=== PATIENT | female | born 1985 | race Caucasian/White ===

== ENCOUNTER 2021-07-04 13:39 | Emergency (ER) | payer MEDICARE, MEDICAID, SELFPAY ==
--- NOTE | ~2021-07-04 | CT_ITS ---
EXAMINATION: CT ABDOMEN AND PELVIS WITH CONTRAST CLINICAL INFORMATION: Abdominal pain. SBO? COlitis? Appendicitis? COMPARISON: CT abdomen pelvis 04/12/2009 TECHNIQUE: Multidetector volumetric images were obtained from the superior aspect of the liver through the pubic symphysis following administration 85 mL of Omnipaque 350 intravenous contrast. Sagittal and coronal reformatted images were obtained on the technologist's workstation. Oral contrast: No This CT examination was performed using dose optimization techniques as appropriate, variously including the following: *Automated exposure control *Adjustment of mA and/or kV according to patient size (this includes techniques or standardized protocols for targeted exams where dose is matched to indication/reason for exam; i.e. extremities or head) *Use of iterative reconstruction technique DLP: 1755 mGy-cm FINDINGS: LUNG BASES: The visualized lung bases are unremarkable. LIVER, GALLBLADDER, AND BILIARY TREE: The liver is normal in size, shape, and attenuation. No focal hepatic lesion or biliary ductal dilatation is present. Status post cholecystectomy. PANCREAS: Unremarkable. SPLEEN: There is mild splenomegaly with the spleen measuring 13.3 cm in greatest transverse dimension. ADRENAL GLANDS: Unremarkable. KIDNEYS AND URETERS: The kidneys are normal in size, shape, and attenuation. No hydronephrosis, hydroureter, or calculi seen. No perinephric stranding. BLADDER: Unremarkable. GASTROINTESTINAL TRACT: The small and large bowel are unremarkable. The appendix is unremarkable. ABDOMINAL WALL: There is a spiculated soft tissue density seen in the left upper quadrant abdominal wall measuring 6.6 x 2.2 x 1.9 cm. This was not present in 2010. LYMPH NODES: Normal. VASCULAR: Unremarkable. PELVIC VISCERA: The patient appears to be status post hysterectomy. Left ovary is enlarged and contains a 4.7 x 3.6 x 3 cm cyst. In 2010, a 3.0 x 2.4 cm cyst was present in the left ovary. OSSEOUS STRUCTURES: Unremarkable. CT/CT abdomen pelvis w con IMPRESSION: 1. Mild splenomegaly, status post cholecystectomy. 2. Spiculated mass left upper quadrant subcutaneous fat most likely secondary to prior surgery or old trauma. 3. Left ovarian cyst. This would be better evaluated with endovaginal and transabdominal ultrasound. Fleischner guidelines were followed. This result was discussed with LYLA Carmichael at 8:45 PM on the day of the exam and it was ascertained that the content of the report was understood at the time of direct communication.
[2021-07-04 13:54] VITALS: BP 102/52; PULSE 66; RESP 18; TEMP 36.1; O2SAT 95; BMI 53.2
[2021-07-04 14:29] LABS: MANUAL DIFF FLAG NO
[2021-07-04 14:32] LABS: Basophils Percent Auto 0.3 % (0-2); Eosinophils Percent Auto 0.5 % (0-4); Hematocrit 40.3 % (37.0-47.0); Hemoglobin 12.9 g/dl (12.0-16.0); Imm Gran Abs Auto 0.01 X10*3/uL (0.00-0.03); Imm Gran Pct Auto 0.2 % (0.0-0.4); Lymphocytes Absolute Auto 1.4 X10*3/uL (1.2-4.9); Lymphocytes Percent Auto 22.8 % (20-40); Mean Corpuscular Hemoglobin 30.5 pg (27.0-33.0); Mean Corpuscular Volume 95.3 fL (80.0-98.0); Mean Platelet Volume 9.5 fL (9.4-12.3); Monocytes Absolute Auto 0.4 X10*3/uL (0.1-1.2); Monocytes Percent Auto 5.9 % (2-11); Neutrophils Absolute Auto 4.3 x10*3/uL (2.0-8.3); Neutrophils Percent Auto 70.3 % (45-73); Platelet Count 206 X10*3/uL (160-400); Red Blood Count 4.23 X10*6/uL (4.20-5.50); Red Cell Distribution Width 13.4 % (11.0-16.0); White Blood Count 6.1 X10*3/uL (4.8-10.8)
[2021-07-04 14:37] LABS: Appearance Urine CLEAR; Color Urine YELLOW; Glucose Urine UA NEG (NEG); Leukocyte Esterase Urine TRACE (NEG); Nitrite Urine NEG (NEG); Specific Gravity - Urine <= 1.005 (1.005-1.025); UACC Culture Trigger YES; Urine Blood NEG (NEG); Urine Ketones NEG (NEG); Urine Protein NEG (NEG-TRACE)
[2021-07-04 14:39] LABS: UPreg QC Valid YES; Urine Pregnancy NEGATIVE (NEGATIVE)
[2021-07-04 14:47] LABS: RBC Urine 0-2 /HPF (0); Squamous Epithelial Cell Urine 1+ /LPF
[2021-07-04 14:50] LABS: Anion Gap 11 (12-20); Blood Urea Nitrogen 7 mg/dL (9-16); Calcium 8.8 mg/dL (8.4-10.2); Carbon Dioxide 21 mmol/L (22-29); Chloride 107 mmol/L (96-108); Creatinine Clr Calc Pharmacy 127.7; Estimated Glomerular Filt Rate > 60; Glucose Random 82 mg/dL (60-115); Sodium 135 mmol/L (135-145)
--- NOTE | 2021-07-04 18:56 | ED_ITS ---
HPI - Abdominal Pain General Chief Complaint: Abdominal Pain Stated Complaint: bowel issues Time Seen by Provider: 07/04/21 18:11 Source: patient Mode of arrival: ambulatory Limitations: no limitations History of Present Illness HPI narrative: Probably 36-year-old female history of bowel issues such as constipation presents to ED for constipation for the past 4 days. Patient was sent by her chiropractor and osteopathic medicine provider to rule out obstruction. Patient states only small drops of feces and feels like feces a stuck inside her. Patient states some nausea but no vomiting. Patient states no fever or chills. Related Data Previous Rx's Medication Instructions Recorded lactulose 10 gram/15 mL oral 20 g (30 mL) PO DAILY 3 Days #90 ml 07/04/21 solution Allergies Allergy/AdvReac Type Severity Reaction Status Date / Time clarithromycin [From Biaxin] Allergy Unknown UNKNOWN Unverified 12/16/19 17:50 acetaminophen [From Percocet] Allergy Headache Verified 07/04/21 14:00 haloperidol [From Haldol] Allergy Unknown Verified 07/04/21 14:00 ketamine Allergy Unknown Verified 07/04/21 14:00 metoclopramide [From Reglan] Allergy Irritable Verified 07/04/21 14:00 oxycodone [From Percocet] Allergy Headache Verified 07/04/21 14:00 sumatriptan [From Imitrex] Allergy Nausea Verified 07/04/21 14:00 From Compazine Allergy Unknown UNKNOWN Uncoded 12/16/19 17:50 Review of Systems Review of Systems Constipation Yes all other systems are reviewed and are negative [facility] Past Medical History Medical History (Updated 07/04/21 @ 22:32 by LYLA Carmichael) Anxiety Constipation Migraine PTSD (post-traumatic stress disorder) Social History Social History Advance Directives: No Advance Directives Information Provided: No Patient : No Physical Exam ED Vital Signs: Vital Signs - 24 hr 07/04/21 13:54 07/04/21 19:57 Temperature 97.0 F 97.4 F Pulse Rate 66 60 Respiratory Rate 18 16 Blood Pressure 102/52 L 122/59 L Pulse Oximetry 95 98 BMI result Body Mass Index 53.2 Const General: cooperative, healthy appearing, comfortable, no acute distress, well developed, alert, awake and Physically active Orientation/consciousness: patient oriented x3 HENMT Head: Yes normal to inspection, Yes No palpable skull fracture present, Yes normocephalic, Yes atraumatic and No abrasion Eyes General: appearance normal, both eyes and all related structures Neck Neck: Yes normal visual inspection, Yes full ROM, Yes no lymphadenopathy, Yes no meningeal signs, Yes trachea midline, Yes supple, No anterior neck swelling and No tender Chest Chest palpation & inspection: normal inspection of the chest and normal palpation of entire chest wall Resp Effort & Inspection: normal respiratory effort and able to speak in complete sentences Auscultation: clear to auscultation bilaterally Cardio Jugular venous distension: no JVD Heart sounds: S1 normal heart sound present and S2 normal heart sound present GI Inspection: Yes normal to inspection and No abdominal wall ecchymosis Palpation (GI): Soft to palpation, not firm, Tenderness to palpation present (GI) in the LLQ (mild) and in the RLQ (mild); Negative for not at McBurney's point, not periumbilically, not suprapubicly, Ramos's sign negative, obturator sign negative, psoas sign negative, with no rebound tenderness and Rovsing's sign negative, no guarding, not rigid and no pulsatile masses General: No CVA tenderness and Yes no CVA tenderness Back/Spine/Pelvis Back: no CVA tenderness, No CVA tenderness and No back tenderness Skin General skin exam: no rashes or lesions noted and elasticity normal Neuro General: patient oriented x3, gait normal and no meningeal signs Cranial nerves: Yes CN's II-XII intact bilaterally Extrem General: Yes normal to inspection and Yes full ROM Psych Appearance: grossly normal, well kempt and not disheveled Course Course Course Narrative: Patient labs ordered Reevaluation(s) Reevaluation #1: Patient labs are normal. Was sent for CT scan to rule out bowel obstruction. Time: 19:08 Reevaluation #2: Patient labs are normal. CT scan negative for any abdominal emergency. CT scan reading showed subcutaneous mass and left upper quadrant as per radiologist and can be due to surgery. I spoke with patient who states that she did have surgery in that area in the past. Diagnosis constipation. Patient requesting Benadryl and fluids for her migraine exacerbation. Patient states history of migraines. Patient given magnesium citrate and lactulose. Not suspecting ovar surya torsion. Urine negative for UTI. Time: 22:30 MDM - Abdominal Pain MDM Narrative Medical decision making narrative: Constipation Lab Data Result diagrams: 07/04/21 14:15 07/04/21 14:15 Labs: Lab Results 07/04/21 07/04/21 07/04/21 Range/Units 14:15 14:15 14:24 WBC 6.1 (4.8-10.8) X10*3/uL RBC 4.23 (4.20-5.50) X10*6/uL Hgb 12.9 (12.0-16.0) g/dl Hct 40.3 (37.0-47.0) % MCV 95.3 (80.0-98.0) fL MCH 30.5 (27.0-33.0) pg MCHC 32.0 (31.0-35.0) g/dl RDW 13.4 (11.0-16.0) % Plt Count 206 (160-400) X10*3/uL MPV 9.5 (9.4-12.3) fL Immature Gran % (Auto) 0.2 (0.0-0.4) % Neut % (Auto) 70.3 (45-73) % Lymph % (Auto) 22.8 (20-40) % [place] % (Auto) 5.9 (2-11) % Eos % (Auto) 0.5 (0-4) % Baso % (Auto) 0.3 (0-2) % Lymph # (Auto) 1.4 (1.2-4.9) X10*3/uL [place] # (Auto) 0.4 (0.1-1.2) X10*3/uL Eos # (Auto) 0.0 (0.0-0.4) X10*3/uL Baso # (Auto) 0.0 (0.0-0.2) X10*3/uL Abs Immat Gran (auto) 0.01 (0.00-0.03) X10*3/uL Absolute Neuts (auto) 4.3 (2.0-8.3) x10*3/uL Absolute Nucleated RBC 0.000 (0.0-0.012) X10*3/uL Nucleated RBC % (auto) 0.0 (0.0-0.2) /100WBC Sodium 135 (135-145) mmol/L Potassium 4.0 (3.3-5.1) mmol/L Chloride 107 (96-108) mmol/L Carbon Dioxide 21 L (22-29) mmol/L Anion Gap 11 L (12-20) BUN 7 L (9-16) mg/dL Creatinine 0.90 (0.5-1.4) mg/dL Estim Creat Clear Calc 127.7 Estimated GFR > 60 Random Glucose 82 (60-115) mg/dL Calcium 8.8 (8.4-10.2) mg/dL Urine Color YELLOW Urine Appearance CLEAR Urine pH 6.0 (5.0-8.0) Ur Specific [place] <= 1.005 (1.005-1.025) Urine Protein NEG (NEG-TRACE) MG/DL Urine Glucose (UA) NEG (NEG) MG/DL Urine Ketones NEG (NEG) MG/DL Urine Blood NEG (NEG) Urine Nitrite NEG (NEG) Ur Leukocyte Esterase TRACE H (NEG) Urine RBC 0-2 (0) /HPF Urine WBC 1-4 (0-4) /HPF Ur Squamous Epith Cells 1+ /LPF Urine Bacteria NONE /LPF Urine Test (NEGATIVE) 07/04/21 Range/Units 14:24 WBC (4.8-10.8) X10*3/uL RBC (4.20-5.50) X10*6/uL Hgb (12.0-16.0) g/dl Hct (37.0-47.0) % MCV (80.0-98.0) fL MCH (27.0-33.0) pg MCHC (31.0-35.0) g/dl RDW (11.0-16.0) % Plt Count (160-400) X10*3/uL MPV (9.4-12.3) fL Immature Gran % (Auto) (0.0-0.4) % Neut % (Auto) (45-73) % Lymph % (Auto) (20-40) % [place] % (Auto) (2-11) % Eos % (Auto) (0-4) % Baso % (Auto) (0-2) % Lymph # (Auto) (1.2-4.9) X10*3/uL [place] # (Auto) (0.1-1.2) X10*3/uL Eos # (Auto) (0.0-0.4) X10*3/uL Baso # (Auto) (0.0-0.2) X10*3/uL Abs Immat Gran (auto) (0.00-0.03) X10*3/uL Absolute Neuts (auto) (2.0-8.3) x10*3/uL Absolute Nucleated RBC (0.0-0.012) X10*3/uL Nucleated RBC % (auto) (0.0-0.2) /100WBC Sodium (135-145) mmol/L Potassium (3.3-5.1) mmol/L Chloride (96-108) mmol/L Carbon Dioxide (22-29) mmol/L Anion Gap (12-20) BUN (9-16) mg/dL Creatinine (0.5-1.4) mg/dL Estim Creat Clear Calc Estimated GFR Random Glucose (60-115) mg/dL Calcium (8.4-10.2) mg/dL Urine Color Urine Appearance Urine pH (5.0-8.0) Ur Specific [place] (1.005-1.025) Urine Protein (NEG-TRACE) MG/DL Urine Glucose (UA) (NEG) MG/DL Urine Ketones (NEG) MG/DL Urine Blood (NEG) Urine Nitrite (NEG) Ur Leukocyte Esterase (NEG) Urine RBC (0) /HPF Urine WBC (0-4) /HPF Ur Squamous Epith Cells /LPF Urine Bacteria /LPF Urine Test NEGATIVE (NEGATIVE) Discharge Plan Discharge Clinical Impression: Constipation Patient Disposition: Home, Self-Care Instructions: Constipation (ED) Additional Instructions: Her labs came back normal. CT scan came back negative for any abdominal emergent medical/surgical etiology. Will be discharged with lactulose prescription for constipation. Return to the ED for worsening abdominal pain, nausea, vomiting, dysuria, hematuria, flank pain, fever, chills, chest pain, shortness of breath, headache or any other concerning symptoms. 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 Prescriptions: New lactulose 10 gram/15 mL solution 20 g PO DAILY 3 Days Qty: 90 0RF Stand Alone Forms: Work/School Release Interventions: ED Discharge Assessment Last Done: 07/04/21 22:53 Discharge Date/Time: 07/04/21 22:57 Print Language: Kazakh
[2021-07-04] MEDS: ondansetron HCL 4 MG/2 ML VIAL IVPUSH ×2 (19:55→21:33)
[2021-07-04 19:57] VITALS: BP 122/59; PULSE 60; RESP 16; TEMP 36.3; O2SAT 98
--- NOTE | 2021-07-04 20:04 | PC.NURSE ---
PT CONTINUING TO TELL NURSE THAT THE DR PROMISED HER PAIN MEDICATION NAUSEA MEDICATION ORDER AND PT WAS TOLD SHE NEED TO WAIT TILL CT SCAN WAS PERFORM AND DR WILL SPEAK TO JENNIFER
[2021-07-04] MEDS: iohexoL 350 MG/ML 100 ML INFUS..BTL IV (20:10)
[2021-07-04] MEDS: Ketorolac Tromethamine 30 MG/ML VIAL IVPUSH (21:29)
[2021-07-04] MEDS: diphenhydrAMINE HCL 50 MG/ML VIAL 25 MG IVPUSH (21:30)
[2021-07-04] MEDS: 0.9 % Sodium Chloride 1,000 ML 999 ML IV (21:35)
[2021-07-04] MEDS: Magnesium Citrate 300 ML SOLUTION PO (22:45)
== END 2021-07-04 22:57 | disposition home or self-care (01) ==
PROVIDERS: Emergency Provider Internal Medicine; PCP Internal Medicine Sports Medicine
DX: K59.00 Constipation, unspecified (principal); Z79.899 Other long term (current) drug therapy
CPT/HCPCS: 36415; 74177; 80048; 81001; 81025; 85025; 87086; 87147; 96361; 96374; 96375; 96376; 99284; J1200; J1885; J2405; Q9967

== ENCOUNTER 2022-02-04 10:14 | Emergency (ER) | payer MEDICARE, MEDICAID, SELFPAY ==
[2022-02-04 10:21] VITALS: BP 110/70; PULSE 61; RESP 20; TEMP 36.7; O2SAT 98; BMI 51.7
--- NOTE | 2022-02-04 11:29 | ED_ITS ---
HPI - Headache General Chief Complaint: Headache Stated Complaint: MIGRAINE Time Seen by Provider: 02/04/22 11:00 Source: patient Mode of arrival: ambulatory Limitations: no limitations History of Present Illness HPI Narrative: Patient is a 36-year-old female with a past medical history of migraines who presents emergency department today for evaluation of right-sided migraine with onset of symptoms 2 days ago. She is typically followed by [facility] for management of her migraine headaches. She states that she has multiple medications that she takes at home for preventative including Zonegran, Topamax, propranolol, and she also has abortive medications which include Relpax, Phenergan, Flexeril, and Benadryl. She has been compliant with her preventative medications. She states that she took the abortive medications yesterday without any improvement in her headache. She called the [facility] infusion center today to try and schedule an appointment but she was unable to be scheduled until Friday. She was advised to come to the emergency department. [facility] neurology had faxed over her typical headache care plan. She states that this migraine does feel consistent with her typical headaches, has associated photophobia and phonophobia. Denies any red flag symptoms. Denies any recent head injury or trauma. Related Data Previous Rx's Medication Instructions Recorded lactulose 10 gram/15 mL oral 20 g (30 mL) PO DAILY 3 days #90 mL 07/04/21 solution Allergies Allergy/AdvReac Type Severity Reaction Status Date / Time clarithromycin [From Biaxin] Allergy Unknown UNKNOWN Unverified 12/16/19 17:50 acetaminophen [From Percocet] Allergy Headache Verified 07/04/21 14:00 haloperidol [From Haldol] Allergy Unknown Verified 07/04/21 14:00 ketamine Allergy Unknown Verified 07/04/21 14:00 metoclopramide [From Reglan] Allergy Irritable Verified 07/04/21 14:00 oxycodone [From Percocet] Allergy Headache Verified 07/04/21 14:00 sumatriptan [From Imitrex] Allergy Nausea Verified 07/04/21 14:00 From Compazine Allergy Unknown UNKNOWN Uncoded 12/16/19 17:50 Review of Systems Review of Systems: Constitutional : No Fever, No Chills, No Fatigue ENT/Mouth : No sore throat, No Rhinorrhea Eyes: No Eye Pain, No Swelling, No Redness Cardiovascular : No Chest Pain, No SOB, No Dyspnea on Exertion Respiratory : No Cough, No Sputum Gastrointestinal : No Nausea, No Vomiting, No Diarrhea, No abdominal Pain Genitourinary : No Dysuria, No Urinary Frequency, No Hematuria, Musculoskeletal : No joint pain, No Myalgias, No Joint Swelling Skin : No Skin Lesions, No rash Neuro : No Weakness, No Numbness, No Dizziness, positive Headache Psych : No Anxiety/Panic, No Depression Heme/Lymph: No Bruising, No Bleeding,No Lymphadenopathy Endocrine : No Polyuria, No Polydipsia Yes all other systems are reviewed and are negative COUNT INCLUDES THE [facility] Past Medical History Attestation statement: The following information was validated with the patient. Source: old records reviewed Medical History Anxiety Constipation Migraine PTSD (post-traumatic stress disorder) Social History Social History Advance Directives: No Advance Directives Information Provided: No Physical Exam Vital Signs: Vital Signs: Last Vital Signs Temp 98.7 F 02/04/22 14:39 Pulse 98 02/04/22 14:39 Resp 18 02/04/22 14:39 BP 122/80 02/04/22 14:39 Pulse Ox 100 02/04/22 14:39 O2 Del Method 02/04/22 14:39 BMI result Body Mass Index 51.7 Appearance: Alert.?Oriented to person, place and time. No acute distress.?Normal affect. Head: Normocephalic, atraumatic Eyes: Pupils equal, round and reactive to light. EOMI. No nystagmus. No tenderness to palpation over the temporal region. ENT: External auditory canal normal tympanic membrane pearly may and intact bilaterally. Oropharynx normal. Neck: Normal inspection.? Neck supple. CVS: Heart sounds normal. Normal heart rate and rhythm.? Pulses normal.?? Respiratory: No respiratory distress.? Lung sounds clear to auscultation bilaterally?? Abdomen: Soft and non-tender. Normoactive bowel sounds. ?? Skin: Skin warm and dry.? Normal skin color.? ?? Extremities: No lower extremity edema.? Neuro: Moves all extremities spontaneously. Sensation intact bilaterally. CN II- XII intact. No focal neuro deficits. Ambulatory with steady gait. Course Course Course Narrative: Patient is a 36-year-old female with a past medical history of migraines. Presenting today for abortive therapy of migraine that she has been experiencing over the past 2 days. No red flag symptoms. At this time low suspicion for ICH/SAH, would defer CT of the head. Patient Feels this is consistent with chronic migraines. Was unable to be seen at [facility] to follow care plan from Neurology. Received fax from her neurologist which includes care plan for management; diazepam 1 mg IV, 1500 mL IV saline, diphenhydramine 20 mg IV, 2 doses 30 minutes apart, Toradol 15 mg IV, Zofran 4 mg IV, 2 doses 30 minutes apart. Given diazepam and lorazepam shortage, will replace diazepam with Versed 1 mg IV. Disposition pending results. Reevaluation(s) Reevaluation #1: Migraine headache has significantly improved after receiving her care plan and medication regimen. At this time she states that she feels comfortable going home. Will follow up outpatient with her neurologist as well as primary care provider. We reviewed worrisome signs and symptoms that she should return back to the emergency department for. All questions were answered, and patient was discharged home in a stable condition. Time: 14:37 Medications Administered Discontinued Medications Generic Name Dose Route Start Last Admin Trade Name Iris PRN Reason Stop Dose Admin Diphenhydramine HCl 25 mg 02/04/22 11:19 02/04/22 12:47 Diphenhydramine Hcl 50 Mg/Ml Vial IVPUSH 02/04/22 11:20 25 mg ONCE ONE Administration Diphenhydramine HCl 25 mg 02/04/22 13:19 02/04/22 13:29 Diphenhydramine Hcl 50 Mg/Ml Vial IVPUSH 02/04/22 13:20 25 mg ONCE ONE Administration Sodium Chloride 1,500 mls @ 999 mls/hr 02/04/22 11:30 02/04/22 14:24 Ns IV 02/04/22 13:00 Infused .[id number] [facility] Infusion Ketorolac Tromethamine 15 mg 02/04/22 11:19 02/04/22 13:33 Ketorolac Tromethamine 15 Mg/Ml Vial IVPUSH 02/04/22 11:20 15 mg ONCE ONE Administration Midazolam HCl 1 mg 02/04/22 11:19 02/04/22 13:35 Midazolam Hcl/Pf 2 Mg/2 Ml Vial IVPUSH 02/04/22 11:20 1 mg ONCE ONE Administration Ondansetron HCl 4 mg 02/04/22 11:19 02/04/22 12:41 Ondansetron Hcl 4 Mg/2 Ml Vial IVPUSH 02/04/22 11:20 4 mg ONCE ONE Administration Ondansetron HCl 4 mg 02/04/22 13:19 02/04/22 13:29 Ondansetron Hcl 4 Mg/2 Ml Vial IVPUSH 02/04/22 13:20 4 mg ONCE ONE Administration MDM - Headache Medical Records Attestation: I reviewed the patient's medical records. Discharge Plan Discharge Clinical Impression: Migraine Patient Disposition: Home, Self-Care Instructions: Migraine Headache (ED) Additional Instructions: Continue taking all of your medications as currently prescribed most importantly your prophylactic migraine medications as well as her abortive migraine medications. Follow-up with your neurologist as well as your primary care provider Please feel free to return to emergency department any new or worsening symptoms or concerns. Prescriptions: No Action lactulose 10 gram/15 mL solution 20 g PO DAILY 3 Days Qty: 90 0RF Referrals: Bret Gerard MD [Primary Care Provider] - Interventions: ED Discharge Assessment Last Done: 02/04/22 15:17 Discharge Date/Time: 02/04/22 15:18
[2022-02-04] MEDS: ondansetron HCL 4 MG/2 ML VIAL IVPUSH ×2 (12:41→13:29)
[2022-02-04] MEDS: 0.9 % Sodium Chloride 1,500 ML 999 ML IV (12:45)
[2022-02-04] MEDS: diphenhydrAMINE HCL 50 MG/ML VIAL 25 MG IVPUSH ×2 (12:47→13:29)
--- NOTE | 2022-02-04 13:25 | PC.NURSE ---
PT HAS A VERY SPECIFIC CARE PLAN AND MEDICATION REGIME. SHE HAS CONCERNS THAT HER IV ACCESS MAY NOT LAST FOR HER 1500ML IV INFUSION. SHE WAS MEDICATED CHARTED AN HER IV SITE APPEARS BENIGN AT THIS TIME
[2022-02-04] MEDS: Ketorolac Tromethamine 15 MG/ML VIAL IVPUSH (13:33)
[2022-02-04] MEDS: Midazolam HCl/PF 2 MG/2 ML VIAL 1 MG IVPUSH (13:35)
[2022-02-04 14:10] VITALS: BP 123/51; PULSE 54; RESP 16; TEMP 36.8; O2SAT 98
[2022-02-04 14:39] VITALS: BP 122/80; PULSE 98; RESP 18; TEMP 37.1; O2SAT 100
== END 2022-02-04 15:18 | disposition home or self-care (01) ==
PROVIDERS: Emergency Provider Emergency Medicine; PCP Internal Medicine Sports Medicine
DX: G43.909 Migraine, unspecified, not intractable, without status migrainosus (principal); Z79.899 Other long term (current) drug therapy
CPT/HCPCS: 96361; 96374; 96375; 96376; 99284; J1200; J1885; J2250; J2405

== ENCOUNTER 2022-02-13 10:39 | Emergency (ER) | payer MEDICARE, MEDICAID, SELFPAY ==
[2022-02-13 10:59] VITALS: BP 110/32; PULSE 69; RESP 18; TEMP 36.4; O2SAT 97; BMI 52.4
[2022-02-13 13:12] LABS: Appearance Urine Clear; Color Urine Dark Yellow; Glucose Urine UA Negative (Negative); Leukocyte Esterase Urine Trace (Negative); Nitrite Urine Positive (Negative); Specific Gravity - Urine 1.025 (1.005-1.025); UMIC TRIGGER UACC YES; Urine Blood Negative (Negative); Urine Ketones Trace mg/dL (Negative); Urine Protein Negative (Neg-Trace)
[2022-02-13 13:22] LABS: Hyaline Casts Urine 0-2 /LPF (0-2); RBC Urine 0-2 /HPF (0-2); UACC Culture Trigger YES; WBC Urine 0-5 /HPF (0-5)
[2022-02-13 13:23] LABS: Bacteria Urine Trace (None Seen)
--- NOTE | 2022-02-13 13:48 | ED.HA ---
HPI - Headache General Chief Complaint: Headache Stated Complaint: muti flu like symptoms Time Seen by Provider: 02/13/22 12:52 Source: patient Mode of arrival: ambulatory Limitations: no limitations History of Present Illness HPI Narrative: 36-year-old female who presents emergency department for evaluation of migraine headache. Patient states she had a migraine headache approximately 2 weeks prior was seen in the emergency department and was treated with medications with improvement of her pain. She states the pain had resolved for approximately 4-5 days then she started to get small headaches on and off. She states that 4 days prior to coming to the emergency department she developed a headache which was consistent with her usual migraine. She has points to her left yazdanism area when asked to localize the pain. She describes the pain is a pulsating pain associated with nausea and vomiting. The pain is 8/10. She also states that she has a pressure-like sensation in the frontal area of her head which she states is similar to her sinus pain that she has also had in the past. The patient states that she usually has a transfusion protocol that can be done at [facility] but she felt too ill and came to the emergency department for treatment. She states the protocol is Zofran 4 mg IV, Benadryl 25 mg IV, Ativan 1-2 mg IV and Toradol 15 mg IV. She then gets a repeat dose of Zofran 4 mg IV and Benadryl 25 mg IV. She is also treated with normal saline x1 L. elicited complaint: migraine Onset (ago): day(s) (4) Onset description: gradually Location: left and temporal Severity: severe Pain scale (0-10): 8 Quality & Timing: pulsatile Exacerbating factors: none Relieving factors: nothing Associated symptoms: nausea and vomiting Related Data Previous Rx's Medication Instructions Recorded lactulose 10 gram/15 mL oral 20 g (30 mL) PO DAILY 3 days #90 mL 07/04/21 solution Allergies Allergy/AdvReac Type Severity Reaction Status Date / Time clarithromycin [From Biaxin] Allergy Unknown UNKNOWN Unverified 12/16/19 17:50 acetaminophen [From Percocet] Allergy Headache Verified 07/04/21 14:00 haloperidol [From Haldol] Allergy Unknown Verified 07/04/21 14:00 ketamine Allergy Unknown Verified 07/04/21 14:00 metoclopramide [From Reglan] Allergy Irritable Verified 07/04/21 14:00 oxycodone [From Percocet] Allergy Headache Verified 07/04/21 14:00 sumatriptan [From Imitrex] Allergy Nausea Verified 07/04/21 14:00 From Compazine Allergy Unknown UNKNOWN Uncoded 12/16/19 17:50 Review of Systems Review of Systems: Yes all other systems are reviewed and are negative [facility] Past Medical History [facility] Narrative: Social history: She denies tobacco, alcohol and drug use. Medical History Anxiety Constipation Migraine PTSD (post-traumatic stress disorder) Social History Social History Advance Directives: No Advance Directives Information Provided: No Physical Exam Vital Signs: Vital Signs: Last Vital Signs Temp 97.8 F 02/13/22 16:40 Pulse 57 02/13/22 16:40 Resp 16 02/13/22 16:40 BP 103/56 L 02/13/22 16:40 Pulse Ox 98 02/13/22 16:40 O2 Del Method 02/13/22 16:40 BMI result Body Mass Index 52.4 Const: Other: Awake, alert, female patient, pleasant, cooperative, no distress, answers all questions appropriately HEENT: Other: [id number] tenderness palpation over the frontal sinuses bilaterally with moderate tenderness palpation of the left yazdanism area Head: Yes normal to inspection, Yes normocephalic and Yes atraumatic Ears: external ears normal General nose exam: Normal external nose present Face and sinus: Yes normal facial exam Mouth: Normal oral and palatal mucosa present Throat: Yes posterior oropharynx normal Eyes: General: appearance normal, both eyes and all related structures Pupils: Equal, round and reactive pupils present Neck: Neck: Yes normal visual inspection, Yes no lymphadenopathy, Yes trachea midline and Yes supple Chest: Chest palpation & inspection: normal inspection of the chest and normal palpation of entire chest wall Resp: Effort & Inspection: normal respiratory effort and able to speak in complete sentences Auscultation: clear to auscultation bilaterally Cardio: Rate: regular rate Rhythm: regular rhythm Heart sounds: S1 normal heart sound present, S2 normal heart sound present and no murmurs GI: Inspection: Yes normal to inspection Palpation (GI): Soft to palpation, nontender and no guarding Auscultation: normal bowel sounds : General: Yes no CVA tenderness Back/Spine/Pelvis: Back: no CVA tenderness Skin: General skin exam: no rashes or lesions noted Neuro: Cranial nerves: Yes CN's II-XII intact bilaterally and Yes Equal, round and reactive pupils present Cognition (Neuro): normal cognition Motor exam (neuro): 5/5 motor strength present throughout Extrem: General: Yes normal to inspection Psych: Appearance: grossly normal Speech and movement: Normal speech and movement present Affect: normal affect Attitude: cooperative Thought process: Normal thought process present Thought content: Normal thought content present Course Course Course Narrative: 36-year-old female who presents emergency department for evaluation of migraine-like headache x4 days. Patient has a long history of migraine headaches she states that this headache feels similar to previous headaches. Patient states that she has a transfusion protocol at [facility] however she was unable to go to [facility] secondary to feeling too ill therefore she came to the emergency department. Patient's vital signs were normal. Physical examination did reveal some left temporal tenderness as well as frontal sinus tenderness. Patient's neurologic exam was otherwise unremarkable. Patient's presentation is consistent with a migraine syndrome. She was ordered to get her protocol medications: Toradol 15 mg IV, Zofran 4 mg IV, Benadryl 25 mg IV and Versed 2 mg IV. She will get a repeat dose of Benadryl 25 mg IV and Zofran 4 mg IV and 30 minutes. She was also ordered to get normal saline x1 L. 1709: The patient required a 3rd dose of Zofran 4 mg IV. She states that her nausea improved but her headache only improved slightly. She was given Dilaudid 0.5 mg IV and Versed 2 mg IV. The patient will be discharged home. She was advised to follow-up with her providers for further treatment of her migraine syndrome. Medications Administered Discontinued Medications Generic Name Dose Route Start Last Admin Trade Name Claudeq PRN Reason Stop Dose Admin Diphenhydramine HCl 25 mg 02/13/22 13:45 02/13/22 14:02 Diphenhydramine Hcl 50 Mg/Ml Vial IVPUSH 02/13/22 13:46 25 mg ONCE STA Administration Diphenhydramine HCl 25 mg 02/13/22 13:46 02/13/22 14:40 Diphenhydramine Hcl 50 Mg/Ml Vial IVPUSH 02/13/22 13:47 25 mg ONCE STA Administration Sodium Chloride 1,000 mls @ 999 mls/hr 02/13/22 13:45 02/13/22 15:20 Ns IV 02/13/22 14:45 Infused .Q1H1M STA Infusion Ketorolac Tromethamine 15 mg 02/13/22 13:45 02/13/22 14:02 Ketorolac Tromethamine 15 Mg/Ml Vial IVPUSH 02/13/22 13:46 15 mg ONCE STA Administration Midazolam HCl 2 mg 02/13/22 13:45 02/13/22 14:03 Midazolam Hcl/Pf 2 Mg/2 Ml Vial IVPUSH 02/13/22 13:46 2 mg ONCE STA Administration Ondansetron HCl 4 mg 02/13/22 13:46 02/13/22 14:00 Ondansetron Hcl 4 Mg/2 Ml Vial IVPUSH 02/13/22 13:47 4 mg ONCE ONE Administration Ondansetron HCl 4 mg 02/13/22 14:37 02/13/22 14:41 Ondansetron Hcl 4 Mg/2 Ml Vial IVPUSH 02/13/22 14:38 4 mg ONCE ONE Administration Ondansetron HCl 4 mg 02/13/22 15:25 02/13/22 15:36 Ondansetron Hcl 4 Mg/2 Ml Vial IVPUSH 02/13/22 15:26 4 mg ONCE ONE Administration MDM - Headache Lab Data Labs: Lab Results 02/13/22 Range/Units 12:51 Urine Color Dark Yellow Urine Appearance Clear Urine pH 7.0 (5.0-9.0) Ur Specific [place] 1.025 (1.005-1.025) Urine Protein Negative (Neg-Trace) mg/dL Urine Glucose (UA) Negative (Negative) mg/dL Urine Ketones Trace (Negative) mg/dL Urine Blood Negative (Negative) Urine Nitrite Positive H (Negative) Ur Leukocyte Esterase Trace H (Negative) Urine RBC 0-2 (0-2) /HPF Urine WBC 0-5 (0-5) /HPF Ur Squamous Epith Cells 6-10 (0-2) /HPF Urine Bacteria Trace (None Seen) Hyaline Casts 0-2 (0-2) /LPF Discharge Plan Discharge Clinical Impression: Migraine Qualifiers: Status migrainosus presence: without status migrainosus Intractability: not intractable Patient Disposition: Home, Self-Care Instructions: Migraine Headache (ED) Additional Instructions: Continue taking your medications as prescribed by your providers. Follow-up with your doctor in 2 days. Please return to the emergency department if your symptoms get worse or if you develop any symptoms that are concerning to you. Prescriptions: No Action lactulose 10 gram/15 mL solution 20 g PO DAILY 3 Days Qty: 90 0RF
[2022-02-13] MEDS: ondansetron HCL 4 MG/2 ML VIAL IVPUSH ×3 (14:00→15:36)
[2022-02-13] MEDS: diphenhydrAMINE HCL 50 MG/ML VIAL 25 MG IVPUSH ×2 (14:02→14:40)
[2022-02-13] MEDS: Ketorolac Tromethamine 15 MG/ML VIAL IVPUSH (14:02)
[2022-02-13] MEDS: 0.9 % Sodium Chloride 1,000 ML 999 ML IV (14:02)
[2022-02-13] MEDS: Midazolam HCl/PF 2 MG/2 ML VIAL IVPUSH ×2 (14:03→17:33)
[2022-02-13 15:38] VITALS: TEMP 37.1
[2022-02-13 16:40] VITALS: BP 103/56; PULSE 57; RESP 16; TEMP 36.6; O2SAT 98
[2022-02-13] MEDS: HYDROmorphone HCl 0.5 MG/0.5 ML SYRINGE IVPUSH (17:34)
== END 2022-02-13 18:02 | disposition home or self-care (01) ==
PROVIDERS: Emergency Provider Emergency Medicine Emergency Medical Services; PCP Internal Medicine Sports Medicine
DX: G43.909 Migraine, unspecified, not intractable, without status migrainosus (principal); R11.0 Nausea
CPT/HCPCS: 81001; 87086; 87147; 96361; 96374; 96375; 96376; 99284; J1170; J1200; J1885; J2250; J2405

== ENCOUNTER 2022-04-12 13:05 | Emergency (ER) | payer MEDICARE, MEDICAID, SELFPAY ==
[2022-04-12 13:13] VITALS: BP 110/38; BP 141/69; PULSE 65; PULSE 80; RESP 18; TEMP 37.1; O2SAT 97; O2SAT 98; BMI 47.1
--- NOTE | 2022-04-12 13:21 | ED_ITS ---
HPI - Headache General Chief Complaint: Headache Stated Complaint: [id number], N/V/WEAKNESS Time Seen by Provider: 04/12/22 13:09 Source: patient and EMS Mode of arrival: EMS Limitations: no limitations History of Present Illness HPI Narrative: 36-year-old female with history of migraine presented with a week of headache migraine that was triggered with maxillary sinus infection. Because the sinus infection patient was started on doxycycline patient started to have abdominal pain and nausea vomiting diarrhea after use the doxycycline only used 2 doses that the patient's think it triggered her migraine, headache is similar to her previous migraine headache in the past, started 3 days ago. Feel nauseous and vomiting. Related Data Previous Rx's Medication Instructions Recorded lactulose 10 gram/15 mL oral 20 g (30 mL) PO DAILY 3 days #90 mL 07/04/21 solution Allergies Allergy/AdvReac Type Severity Reaction Status Date / Time clarithromycin [From Biaxin] Allergy Unknown UNKNOWN Unverified 12/16/19 17:50 acetaminophen [From Percocet] Allergy Headache Verified 07/04/21 14:00 haloperidol [From Haldol] Allergy Unknown Verified 07/04/21 14:00 ketamine Allergy Unknown Verified 07/04/21 14:00 metoclopramide [From Reglan] Allergy Irritable Verified 07/04/21 14:00 oxycodone [From Percocet] Allergy Headache Verified 07/04/21 14:00 sumatriptan [From Imitrex] Allergy Nausea Verified 07/04/21 14:00 From Compazine Allergy Unknown UNKNOWN Uncoded 12/16/19 17:50 Review of Systems Review of Systems: All other systems are reviewed and are negative Constitutional: Reports as per HPI and Reports no additional constitutional complaints Eyes: Reports as per HPI and Reports no additional eye complaints Reports system reviewed and no additional complaints, except as documented Cardiovascular: Reports as per HPI and Reports no additional cardiovascular complaints Respiratory: Reports as per HPI and Reports no additional respiratory complaints Gastrointestinal: Reports as per HPI and Reports no additional gastrointestinal complaints Genitourinary: Reports no additional female genitourinary complaints Musculoskeletal: Reports no additional musculoskeletal complaints Skin/Breast: Reports system reviewed and no additional complaints, except as docu Psychiatric: Reports no additional psychiatric complaints Endocrine: Reports no additional endocrine complaints Hematologic/Lymphatic: Reports no additional hematologic/lymphatic complaints Allergic/Immunologic: Reports no additional allergic/immunologic complaints Reports system reviewed and no additional complaints, except as documented and Reports Abnormal speech present [facility] Past Medical History Medical History Anxiety Constipation Migraine PTSD (post-traumatic stress disorder) Social History Social History Advance Directives: Yes Advance Directives Information Provided: Yes Advance Directives on File: No Physical Exam Vital Signs: Vital Signs: Last Vital Signs Temp 98.7 F 04/12/22 13:13 Pulse 65 04/12/22 13:13 Resp 18 04/12/22 13:13 BP 110/38 L 04/12/22 13:13 Pulse Ox 98 04/12/22 13:13 O2 Del Method 04/12/22 13:13 BMI result Body Mass Index 47.1 Vital signs have been reviewed as appeared to be correct. Blood pressure normal. Heart rate normal. Respiration rate normal. Temperature normal. Oxygen saturation normal. Appearance: Alert. Oriented X3. No acute distress. Head: Normal external exam. Normocephalic. Atraumatic. No Oliveira signs noted. No raccoon eyes noted Eyes: PERRLA. EOMI. Conjunctiva and sclera normal. Eyelids normal. ENT: TM's Normal. Pharynx normal. Uvula midline. Moist mucous membranes. No trismus noted. No drooling noted. No muffled voice noted. Neck: Normal inspection. Neck supple. FROM. No adenopathy. Thyroid Normal. No meningeal signs. No neck mass noted. CVS: Normal heart rate and rhythm. Heart sound normal. No murmurs noted. Pulses normal throughout. Respiratory: No respiratory distress. Painless inspiration. Breath sounds normal. No wheezes/rales/rhonchi noted. Chest nontender. No accessory muscle usage noted or decreased air movement noted. Abdomen: Soft and nontender. Bowel sounds normal in all 4 quadrants. No distention noted. No organomegaly noted. No visible injury noted. Back: No CVA tenderness. Full range of motion noted. Skin: Skin warm and dry. Normal skin color. Normal skin turgor. No rashes/lesions/lacerations noted. Extremities: No lower extremity edema. Extremities exhibit normal range of motion. Extremities nontender. Neuro: Oriented X 3. Cranial nerve exam: II-XII are grossly intact No motor deficit. No sensory deficit. Reflexes normal. Course Course Course Narrative: 36-year-old female with long history of migraine recently diagnosed with sinusitis was started on doxycycline that caused abdominal pain with nausea and vomiting and triggered her migraine, patient received morphine, Ativan, Toradol, Benadryl. Patient's headache is better but started feel cramps in her abdomen patient receive another 2 mg of Ativan and re-evaluate. Medications Administered Discontinued Medications Generic Name Dose Route Start Last Admin Trade Name Claudeq PRN Reason Stop Dose Admin Diphenhydramine HCl 25 mg 04/12/22 13:20 04/12/22 14:34 Diphenhydramine Hcl 50 Mg/Ml Vial IVPUSH 04/12/22 13:21 25 mg ONCE ONE Administration Sodium Chloride 1,000 mls @ 999 mls/hr 04/12/22 13:20 04/12/22 14:34 Ns IV 04/12/22 14:20 999 mls/hr .Q1H1M ONE Administration Ketorolac Tromethamine 15 mg 04/12/22 13:20 04/12/22 14:35 Ketorolac Tromethamine 15 Mg/Ml Vial IVPUSH 04/12/22 13:21 15 mg ONCE ONE Administration Lorazepam 1 mg 04/12/22 13:24 04/12/22 14:34 Lorazepam 2 Mg/Ml Vial IVPUSH 04/12/22 13:25 1 mg ONCE ONE Administration Lorazepam 1 mg 04/12/22 15:17 04/12/22 15:40 Lorazepam 2 Mg/Ml Vial IVPUSH 04/12/22 15:18 1 mg ONCE ONE Administration Morphine Sulfate 4 mg 04/12/22 15:17 04/12/22 15:41 Morphine Sulfate 4 Mg/Ml Cartridge IVPUSH 04/12/22 15:18 4 mg ONCE ONE Administration Protocol Ondansetron HCl 4 mg 04/12/22 13:20 04/12/22 14:35 Ondansetron Hcl 4 Mg/2 Ml Vial IVPUSH 04/12/22 13:21 4 mg ONCE ONE Administration Ondansetron HCl 4 mg 04/12/22 15:17 04/12/22 15:40 Ondansetron Hcl 4 Mg/2 Ml Vial IVPUSH 04/12/22 15:18 4 mg ONCE ONE Administration Medical Decision Making Differential Diagnosis Differential Diagnoses: The differential diagnosis associated with the presentation includes (Headache, sinusitis, migraine, doxycycline causing abdominal pain) Discharge Plan Discharge Clinical Impression: Migraine Patient Disposition: Still a Patient Instructions: Migraine Headache (ED) Prescriptions: No Action lactulose 10 gram/15 mL solution 20 g PO DAILY 3 Days Qty: 90 0RF Referrals: Bret Gerard MD [Primary Care Provider] -
[2022-04-12] MEDS: 0.9 % Sodium Chloride 1,000 ML 999 ML IV (14:34)
[2022-04-12] MEDS: LORazepam 2 MG/ML VIAL 1 MG IVPUSH ×2 (14:34→15:40)
[2022-04-12] MEDS: diphenhydrAMINE HCL 50 MG/ML VIAL 25 MG IVPUSH (14:34)
[2022-04-12] MEDS: Ketorolac Tromethamine 15 MG/ML VIAL IVPUSH ×2 (14:35→17:03)
[2022-04-12] MEDS: ondansetron HCL 4 MG/2 ML VIAL IVPUSH ×2 (14:35→15:40)
[2022-04-12] MEDS: Morphine Sulfate 4 MG/ML CARTRIDGE IVPUSH (15:41)
[2022-04-12] MEDS: LORazepam 2 MG/ML VIAL IVPUSH (17:03)
== END 2022-04-12 18:57 | disposition home or self-care (01) ==
PROVIDERS: Emergency Provider Emergency Medicine; PCP Internal Medicine Sports Medicine
DX: G43.909 Migraine, unspecified, not intractable, without status migrainosus (principal); R53.1 Weakness; Z79.899 Other long term (current) drug therapy
CPT/HCPCS: 96361; 96374; 96375; 96376; 99283; 99284; J1200; J1885; J2060; J2270; J2405

== ENCOUNTER 2022-05-01 09:06 | Emergency (ER) | payer MEDICARE, MEDICAID, SELFPAY ==
[2022-05-01 09:08] VITALS: BP 106/55; PULSE 66; RESP 16; TEMP 36.6; O2SAT 98; BMI 52.4
--- NOTE | 2022-05-01 10:30 | ED_ITS ---
HPI - Headache General Chief Complaint: Headache Stated Complaint: Migraine Time Seen by Provider: 05/01/22 09:35 Source: patient Mode of arrival: ambulatory History of Present Illness HPI Narrative: This is a 36-year-old female with acute on chronic exacerbation migraine headaches, she was seen here on 04/12 and has a neurologist at [facility], Dr. Tovar, patient is endorsing that she is on preventative medication, she was scheduled for an infusion today but states that she was unable to wait and did not want to go to [facility] because the waiting room wait is too long. She did reach out to her neurologist yesterday who scheduled her for infusion today. Related Data Previous Rx's Medication Instructions Recorded lactulose 10 gram/15 mL oral 20 g (30 mL) PO DAILY 3 days #90 mL 07/04/21 solution ketorolac 10 mg tablet 10 mg PO TID PRN pain 5 days #7 04/12/22 tabs Allergies Allergy/AdvReac Type Severity Reaction Status Date / Time clarithromycin [From Biaxin] Allergy Unknown UNKNOWN Unverified 12/16/19 17:50 acetaminophen [From Percocet] Allergy Headache Verified 07/04/21 14:00 haloperidol [From Haldol] Allergy Unknown Verified 07/04/21 14:00 ketamine Allergy Unknown Verified 07/04/21 14:00 metoclopramide [From Reglan] Allergy Irritable Verified 07/04/21 14:00 oxycodone [From Percocet] Allergy Headache Verified 07/04/21 14:00 sumatriptan [From Imitrex] Allergy Nausea Verified 07/04/21 14:00 morphine AdvReac Stomach Verified 05/01/22 09:13 Upset From Compazine Allergy Unknown UNKNOWN Uncoded 12/16/19 17:50 Review of Systems Review of Systems: Pertinent positives and negatives as stated in HPI [facility] Past Medical History Source: nursing notes reviewed Medical History Anxiety Constipation Migraine PTSD (post-traumatic stress disorder) Social History Social History Advance Directives: No Advance Directives Information Provided: No Physical Exam Vital Signs: Vital Signs: Last Vital Signs Temp 97.8 F 05/01/22 09:08 Pulse 66 05/01/22 09:08 Resp 15 05/01/22 11:48 BP 106/55 L 05/01/22 09:08 Pulse Ox 98 05/01/22 09:08 O2 Del Method 05/01/22 09:08 BMI result Body Mass Index 52.4 VITAL SIGNS: Reviewed. GENERAL: Elevated BMI, Well developed, well nourished, in no acute distress. HEAD: Normocephalic/atraumatic EYES: PERRLA, EOMI, no nystagmus EARS: Ext canals without abnormality, TMs non-bulging and non-erythematous NOSE: Nares patent bilateral OROPHARYNX: no oral lesions noted, posterior pharynx clear NECK: Supple, no adenopathy LUNGS: Normal breath sounds. No adventitious sounds or accessory muscle use. SpO2<98> CARDIOVASCULAR: Regular rate and rhythm without noted murmurs ABDOMEN: Soft, non-tender, non-distended with bowel sounds. MUSCULOSKELETAL: No tenderness, deformities, or effusions noted on gross inspection. EXTREMITIES: No cyanosis, clubbing or edema. SKIN: Inspection of the skin reveals no rashes NEUROLOGIC: Alert and oriented x 4. Strength and sensation to light touch were grossly intact x 4,, no facial asymmetry, no pronator drift, cranial nerves 2-12 are grossly intact. Medications Administered Discontinued Medications Generic Name Dose Route Start Last Admin Trade Name Freq PRN Reason Stop Dose Admin Diphenhydramine HCl 25 mg 05/01/22 10:32 05/01/22 11:28 Diphenhydramine Hcl 50 Mg/Ml Vial IVPUSH 05/01/22 10:33 25 mg ONCE ONE Administration Diphenhydramine HCl 25 mg 05/01/22 11:31 05/01/22 12:02 Diphenhydramine Hcl 50 Mg/Ml Vial IVPUSH 05/01/22 11:32 25 mg ONCE ONE Administration Sodium Chloride 1,000 mls @ 999 mls/hr 05/01/22 10:45 05/01/22 11:33 Ns IV 05/01/22 11:45 999 mls/hr .Q1H1M WANG Administration Sodium Chloride 500 mls @ 999 mls/hr 05/01/22 11:30 05/01/22 12:42 Ns IV 05/01/22 12:00 Not Given .Q31M WANG Magnesium Sulfate 2 gm in 50 mls @ 25 mls/hr 05/01/22 11:30 05/01/22 11:39 Magnesium Sulfate/H2o IV 05/01/22 13:29 25 mls/hr ONCE ONE Administration Ketorolac Tromethamine 15 mg 05/01/22 10:32 05/01/22 11:30 Ketorolac Tromethamine 30 Mg/Ml Vial IVPUSH 05/01/22 10:33 15 mg ONCE ONE Administration Lidocaine 1 patch 05/01/22 12:37 05/01/22 12:42 Lidocaine 4 % Patch Adh..Patch TRANSDERMA 05/01/22 12:38 1 patch ONCE ONE Administration Protocol Lorazepam 1 mg 05/01/22 11:30 05/01/22 11:39 Lorazepam 2 Mg/Ml Vial IVPUSH 05/01/22 11:31 1 mg ONCE ONE Administration Ondansetron HCl 4 mg 05/01/22 11:19 05/01/22 11:30 Ondansetron Hcl 4 Mg/2 Ml Vial IVPUSH 05/01/22 11:20 4 mg ONCE ONE Administration Ondansetron HCl 4 mg 05/01/22 11:31 05/01/22 12:01 Ondansetron Hcl 4 Mg/2 Ml Vial IVPUSH 05/01/22 11:32 4 mg ONCE ONE Administration Medical Decision Making Medical Decision Making MDM Narrative: 36-year-old female who is dictating the medications that she will accept as well as the timing of the administration of the medications. She is demanding 4 mg of Zofran and 25 mg of Benadryl with Ativan and Toradol and then wait 30 minutes and then repeat the 4 mg of Zofran and the 25 mg of Benadryl. I'm contacting her neurologist in the hopes that we can establish a care plan for this patient that is more longstanding and will help facilitate her continuity of care within the [facility] system. There is no history or findings to suggest any infectious or electrolyte abnormalities. 1320: On re-evaluation patient reports improvement but says that her neck is tense that she was offered a Lidoderm patch, she is however improved and will be discharged home and will follow-up with her neurologist. She received all of the recommended treatment to include the magnesium sulfate. Differential Diagnosis Differential Diagnoses: The differential diagnosis associated with the presentat ion includes Please see the discussion above Consult Healthcare Provider Management of the patient was discussed with: Jet Inspector Dr [email or web address]: I discussed this patient with Dr. Tovar who has an appointment with his patient in 2 weeks and confirms that patient's proposed infusion plan prior to the ER is: 1500 mL of normal saline, 1 mg of Ativan x1, diphenhydramine 25 mg IV x2, Q 30, Zofran 4 mg x 2 acute 30, Toradol 15 mg x 1, and if she requires the ER she is scheduled to get 2 mg Mag sulfate IV. External Record Review External record reviewed: Outpatient record and Prior outpatient labs Critical Care Time Critical Care Time Critical Care Time: Yes Total Critical Care Time: 30 Attestation: I personally attest to this time spent taking care of the patient. Discharge Plan Discharge Clinical Impression: Migraine Patient Disposition: Home, Self-Care Instructions: Migraine Headache (ED) Additional Instructions: 1. Resume all home medications as prescribed. 2. Please keep your appointment with your neurologist. Return to the ER for any worsening symptoms. Prescriptions: No Action lactulose 10 gram/15 mL solution 20 g PO DAILY 3 Days Qty: 90 0RF ketorolac 10 mg tablet 10 mg PO TID PRN (Reason: pain) 5 Days Qty: 7 0RF Rx Instructions: Do not take NSAIDs with this medication, only Tylenol if needed Referrals: Bret Gerard MD [Primary Care Provider] - Nayeli Tovar MD [Physician] -
[2022-05-01] MEDS: diphenhydrAMINE HCL 50 MG/ML VIAL 25 MG IVPUSH ×2 (11:28→12:02)
[2022-05-01] MEDS: ondansetron HCL 4 MG/2 ML VIAL IVPUSH ×2 (11:30→12:01)
[2022-05-01] MEDS: Ketorolac Tromethamine 30 MG/ML VIAL 15 MG IVPUSH (11:30)
[2022-05-01] MEDS: 0.9 % Sodium Chloride 1,000 ML 999 ML IV (11:33)
[2022-05-01] MEDS: LORazepam 2 MG/ML VIAL 1 MG IVPUSH (11:39)
[2022-05-01] MEDS: Magnesium Sulfate/H2O 2 GM/50 ML PIGGYBACK IV (11:39)
[2022-05-01 11:48] VITALS: RESP 15
[2022-05-01] MEDS: Lidocaine 4 % Patch ADH..PATCH 1 PATCH TRANSDERMA (12:42)
== END 2022-05-01 13:49 | disposition home or self-care (01) ==
PROVIDERS: Emergency Provider Student in an Organized Health Care Education/Training Program; PCP Internal Medicine Sports Medicine
DX: G43.909 Migraine, unspecified, not intractable, without status migrainosus (principal); Z79.899 Other long term (current) drug therapy
CPT/HCPCS: 96361; 96374; 96375; 96376; 99284; J1200; J1885; J2060; J2405; J3475

== ENCOUNTER 2022-05-10 11:21 | Emergency (ER) | payer MEDICARE, MEDICAID, SELFPAY ==
[2022-05-10 11:58] VITALS: BP 111/67; PULSE 72; RESP 18; TEMP 36.8; O2SAT 98; BMI 47.1
--- NOTE | 2022-05-10 12:01 | ED.HA ---
HPI - Headache General Chief Complaint: General Medical <LYLA Belle - Last Filed: 05/10/22 12:08> Stated Complaint: Migraine <LYLA Belle - Last Filed: 05/10/22 12:08> Time Seen by Provider: 05/10/22 14:31 <LYLA Belle - Last Filed: 05/10/22 12:08> History of Present Illness HPI Narrative: patient is a 36-year-old female who presents to the emergency department with past medical history of anxiety, PTSD, and migraines. She states that she has been experiencing severe migraines for the past month, Her outpatient medications have not alleviated her migraine. She was seen here in the emergency department May 01, 2022, requiring IV medications at that time. She reports that she was at her neurologist's office today, Dr. Tovar through [facility], she was advised to go to the emergency department for treatment, reporting that she could not go to the infusion center to obtain her regimen today as they are unable to administer IV magnesium there. She states that she did not agree to [facility] Emergency Department because she cannot wait 13 hours in the waiting room with a migraine . <Sushma Pacheco CNP - Last Filed: 05/10/22 18:12> Related Data Home Medications: Previous Rx's Medication Instructions Recorded lactulose 10 gram/15 mL oral 20 g (30 mL) PO DAILY 3 days #90 mL 07/04/21 solution ketorolac 10 mg tablet 10 mg PO TID PRN pain 5 days #7 04/12/22 tabs <LYLA Belle - Last Filed: 05/10/22 12:08> Allergies/Adverse Reactions: Allergies Allergy/AdvReac Type Severity Reaction Status Date / Time clarithromycin [From Biaxin] Allergy Unknown UNKNOWN Unverified 12/16/19 17:50 acetaminophen [From Percocet] Allergy Headache Verified 07/04/21 14:00 haloperidol [From Haldol] Allergy Unknown Verified 07/04/21 14:00 ketamine Allergy Unknown Verified 07/04/21 14:00 metoclopramide [From Reglan] Allergy Irritable Verified 07/04/21 14:00 oxycodone [From Percocet] Allergy Headache Verified 07/04/21 14:00 sumatriptan [From Imitrex] Allergy Nausea Verified 07/04/21 14:00 morphine AdvReac Stomach Verified 05/01/22 09:13 Upset From Compazine Allergy Unknown UNKNOWN Uncoded 12/16/19 17:50 <LYLA Belle - Last Filed: 05/10/22 12:08> Review of Systems Review of Systems: Constitutional : No Fever, No Chills, No Fatigue ENT/Mouth : No sore throat, No Rhinorrhea Eyes: No Eye Pain, No Swelling, No Redness Cardiovascular : No Chest Pain, No SOB, No Dyspnea on Exertion Respiratory : No Cough, No Sputum Gastrointestinal : No Nausea, No Vomiting, No Diarrhea, No abdominal Pain Genitourinary : No Dysuria, No Urinary Frequency, No Hematuria, Musculoskeletal : No joint pain, No Myalgias, No Joint Swelling Skin : No Skin Lesions, No rash Neuro : No Weakness, No Numbness, No Dizziness, positive Headache Psych : No Anxiety/Panic, No Depression Heme/Lymph: No Bruising, No Bleeding,No Lymphadenopathy Endocrine : No Polyuria, No Polydipsia <Sushma Pacheco CNP - Last Filed: 05/10/22 18:12> Yes all other systems are reviewed and are negative <Sushma Pacheco CNP - Last Filed: 05/10/22 18:12> PMF Past Medical History Attestation statement: The following information was validated with the patient. <Sushma Pacheco CNP - Last Filed: 05/10/22 18:12> Source: old records reviewed <Sushma Pacheco CNP - Last Filed: 05/10/22 18:12> Medical History: Medical History Anxiety Constipation Migraine PTSD (post-traumatic stress disorder) <LYLA Belle - Last Filed: 05/10/22 12:08> Social History Social History: Social History Advance Directives: No Advance Directives Information Provided: No <LYLA Belle - Last Filed: 05/10/22 12:08> Physical Exam Vital Signs: Vital Signs: Last Vital Signs Temp 98.2 F 05/10/22 20:02 Pulse 55 05/10/22 20:02 Resp 14 05/10/22 20:02 BP 113/52 L 05/10/22 20:02 Pulse Ox 99 05/10/22 20:02 O2 Del Method 05/10/22 20:02 BMI result Body Mass Index 47.1 <LYLA Belle - Last Filed: 05/10/22 12:08> Vital Signs: Last Vital Signs Temp 98.2 F 05/10/22 20:02 Pulse 55 05/10/22 20:02 Resp 14 05/10/22 20:02 BP 113/52 L 05/10/22 20:02 Pulse Ox 99 05/10/22 20:02 O2 Del Method 05/10/22 20:02 BMI result Body Mass Index 47.1 <Sushma Pacheco CNP - Last Filed: 05/10/22 18:12> Vital Signs: Last Vital Signs Temp 98.2 F 05/10/22 20:02 Pulse 55 05/10/22 20:02 Resp 14 05/10/22 20:02 BP 113/52 L 05/10/22 20:02 Pulse Ox 99 05/10/22 20:02 O2 Del Method 05/10/22 20:02 BMI result Body Mass Index 47.1 <LYLA Cuevas - Last Filed: 05/10/22 22:08> Appearance: Alert.?Oriented to person, place and time. No acute distress.?Normal affect. Eyes: Pupils equal, round and reactive to light.? ENT: Pharynx normal.?? Neck: Normal inspection.? Neck supple.?? CVS: Heart sounds normal. Normal heart rate and rhythm.? Pulses normal.?? Respiratory: No respiratory distress.? Lung sounds clear to auscultation bilaterally?? Abdomen: Soft and non-tender. Normoactive bowel sounds. Skin: Skin warm and dry.? Normal skin color.? ? Extremities: No lower extremity edema.? No calf ttp? Neuro: Moves all extremities spontaneously. Sensation intact bilaterally. CN II-XII intact. No focal neuro deficits. Ambulates with normal steady gait. <Sushma Pacheco CNP - Last Filed: 05/10/22 18:12> Course Course Course Narrative: [id number] c PMHx of migraine headaches presenting to the ED with complaints of headaches x 1 month. Being followed by Neurology Dr. Tovar and was sent to infusion center although patient decided to come here because the infusion center does not give her Depakote or magnesium to the IV and this is with usually helps her migraine headaches. She reports that she is on multiple preventative medications for her migraine headaches although not helping with her migraine headache over the past month. Last Note reviewed and stated 05/01/22 Management of the patient was discussed with: Quality Assurance Supervisor Chassis Dr [email or web address]:? I discussed this patient with Dr. Tovar who has an appointment with his patient in 2 weeks and confirms that patient's proposed infusion plan prior to the ER is:? 1500 mL of normal saline, 1 mg of Ativan x1, diphenhydramine 25 mg IV x2, Q 30, Zofran 4 mg x 2 acute 30, Toradol 15 mg x 1, and if she requires the ER she is scheduled to get 2 mg Mag sulfate IV. Plan: Will obtain labs patient can be sent back to the waiting room to evaluated in the ED. <LYLA Belle - Last Filed: 05/10/22 12:08> Reevaluation(s) Reevaluation #1: CBC is overall unremarkable. ESR And CRP within normal limits. CMP is overall within normal limits. testing is negative. Viral testing is negative. She is requesting the medications that are under her [facility] infusion care plan; 1500 mL of normal saline, lorazepam 1 mg IV, diphenhydramine 25 mg IV x2 30 minutes apart, ondansetron 4 mg IV 30 minutes apart, magnesium 2 g IV, pantoprazole 20 mg IV for GI upset. She is additionally requesting IV Depakote, according to the care plan that she has printed out from a neurology there is no specific dosing noted with this. <Sushma Pacheco CNP - Last Filed: 05/10/22 18:12> Time: 15:33 <Sushma Pacheco CNP - Last Filed: 05/10/22 18:12> Reevaluation #2: Dr. Tovar her neurologist recommending Depakote 500mg IV push over 5-10 minutes, not effective if administered via infusion over 1 hour. once patient has received her infusion regimen, anticipate discharge home if successful improvement in migraine and outpatient follow-up with Neurology for continued management in optimizing outpatient regimen. <Sushma Pacheco CNP - Last Filed: 05/10/22 18:12> Time: 16:22 <Sushma Pacheco CNP - Last Filed: 05/10/22 18:12> Reevaluation #3: patient signed out to Maureen Reynolds pending re-evaluation after regimen completed <Sushma Pacheco CNP - Last Filed: 05/10/22 18:12> Time: 18:10 <Sushma Pacheco CNP - Last Filed: 05/10/22 18:12> Additional Reevaluation(s): Patient feeling better, was woken up from a nap. At time of discharge patient's neuro exam nonfocal. Ambulatory with steady gait. NIH stroke scale 0. At this time patient will be discharged home with Neurology follow-up. Educated patient on diagnosis and treatment plan, answered all question, patient verbalizes understanding. At this time patient will be discharged home, advised to return with new or worsening symptoms. Educated on worrisome signs and symptoms and when to return. At this time I feel comfortable discharge home. <LYLA Cuevas - Last Filed: 05/10/22 22:08> Medications Administered Discontinued Medications Generic Name Dose Route Start Last Admin Trade Name Iris PRN Reason Stop Dose Admin Diphenhydramine HCl 50 mg 05/10/22 15:19 05/10/22 17:07 Diphenhydramine Hcl 50 Mg/Ml Vial IVPUSH 05/10/22 15:20 50 mg ONCE ONE Administration Diphenhydramine HCl 25 mg 05/10/22 15:23 05/10/22 20:38 Diphenhydramine Hcl 50 Mg/Ml Vial IVPUSH 05/10/22 15:24 25 mg ONCE ONE Administration Sodium Chloride 1,000 mls @ 999 mls/hr 05/10/22 15:30 05/10/22 18:24 Ns IV 05/10/22 17:00 Infused .Q1H1M WANG Infusion Magnesium Sulfate 2 gm in 50 mls @ 25 mls/hr 05/10/22 15:19 05/10/22 20:42 Magnesium Sulfate/H2o IV 05/10/22 17:18 25 mls/hr ONCE ONE Administration Valproic Acid 500 mg/ Dextrose 55 mls @ 55 mls/hr 05/10/22 16:26 05/10/22 18:24 IV 05/10/22 17:25 Infused ONCE ONE Infusion Lorazepam 1 mg 05/10/22 15:19 05/10/22 19:41 Lorazepam 2 Mg/Ml Vial IVPUSH 05/10/22 15:20 1 mg ONCE ONE Administration Ondansetron HCl 4 mg 05/10/22 15:19 05/10/22 17:06 Ondansetron Hcl 4 Mg/2 Ml Vial IVPUSH 05/10/22 15:20 4 mg ONCE ONE Administration Ondansetron HCl 4 mg 05/10/22 15:23 05/10/22 20:39 Ondansetron Hcl 4 Mg/2 Ml Vial IVPUSH 05/10/22 15:24 4 mg ONCE ONE Administration Pantoprazole Sodium 20 mg 05/10/22 15:29 05/10/22 17:04 Pantoprazole Sodium 40 Mg/10 Ml Vial IVPUSH 05/10/22 15:30 20 mg ONCE ONE Administration <LYLA Belle - Last Filed: 05/10/22 12:08> Medications Administered Discontinued Medications Generic Name Dose Route Start Last Admin Trade Name Freq PRN Reason Stop Dose Admin Diphenhydramine HCl 50 mg 05/10/22 15:19 05/10/22 17:07 Diphenhydramine Hcl 50 Mg/Ml Vial IVPUSH 05/10/22 15:20 50 mg ONCE ONE Administration Diphenhydramine HCl 25 mg 05/10/22 15:23 05/10/22 20:38 Diphenhydramine Hcl 50 Mg/Ml Vial IVPUSH 05/10/22 15:24 25 mg ONCE ONE Administration Sodium Chloride 1,000 mls @ 999 mls/hr 05/10/22 15:30 05/10/22 18:24 Ns IV 05/10/22 17:00 Infused .Q1H1M WANG Infusion Magnesium Sulfate 2 gm in 50 mls @ 25 mls/hr 05/10/22 15:19 05/10/22 20:42 Magnesium Sulfate/H2o IV 05/10/22 17:18 25 mls/hr ONCE ONE Administration Valproic Acid 500 mg/ Dextrose 55 mls @ 55 mls/hr 05/10/22 16:26 05/10/22 18:24 IV 05/10/22 17:25 Infused ONCE ONE Infusion Lorazepam 1 mg 05/10/22 15:19 05/10/22 19:41 Lorazepam 2 Mg/Ml Vial IVPUSH 05/10/22 15:20 1 mg ONCE ONE Administration Ondansetron HCl 4 mg 05/10/22 15:19 05/10/22 17:06 Ondansetron Hcl 4 Mg/2 Ml Vial IVPUSH 05/10/22 15:20 4 mg ONCE ONE Administration Ondansetron HCl 4 mg 05/10/22 15:23 05/10/22 20:39 Ondansetron Hcl 4 Mg/2 Ml Vial IVPUSH 05/10/22 15:24 4 mg ONCE ONE Administration Pantoprazole Sodium 20 mg 05/10/22 15:29 05/10/22 17:04 Pantoprazole Sodium 40 Mg/10 Ml Vial IVPUSH 05/10/22 15:30 20 mg ONCE ONE Administration <Sushma Pacheco, SOCIAL MEDIA DIRECTOR - Last Filed: 05/10/22 18:12> Medications Administered Discontinued Medications Generic Name Dose Route Start Last Admin Trade Name Freq PRN Reason Stop Dose Admin Diphenhydramine HCl 50 mg 05/10/22 15:19 05/10/22 17:07 Diphenhydramine Hcl 50 Mg/Ml Vial IVPUSH 05/10/22 15:20 50 mg ONCE ONE Administration Diphenhydramine HCl 25 mg 05/10/22 15:23 05/10/22 20:38 Diphenhydramine Hcl 50 Mg/Ml Vial IVPUSH 05/10/22 15:24 25 mg ONCE ONE Administration Sodium Chloride 1,000 mls @ 999 mls/hr 05/10/22 15:30 05/10/22 18:24 Ns IV 05/10/22 17:00 Infused .Q1H1M WANG Infusion Magnesium Sulfate 2 gm in 50 mls @ 25 mls/hr 05/10/22 15:19 05/10/22 20:42 Magnesium Sulfate/H2o IV 05/10/22 17:18 25 mls/hr ONCE ONE Administration Valproic Acid 500 mg/ Dextrose 55 mls @ 55 mls/hr 05/10/22 16:26 05/10/22 18:24 IV 05/10/22 17:25 Infused ONCE ONE Infusion Lorazepam 1 mg 05/10/22 15:19 05/10/22 19:41 Lorazepam 2 Mg/Ml Vial IVPUSH 05/10/22 15:20 1 mg ONCE ONE Administration Ondansetron HCl 4 mg 05/10/22 15:19 05/10/22 17:06 Ondansetron Hcl 4 Mg/2 Ml Vial IVPUSH 05/10/22 15:20 4 mg ONCE ONE Administration Ondansetron HCl 4 mg 05/10/22 15:23 05/10/22 20:39 Ondansetron Hcl 4 Mg/2 Ml Vial IVPUSH 05/10/22 15:24 4 mg ONCE ONE Administration Pantoprazole Sodium 20 mg 05/10/22 15:29 05/10/22 17:04 Pantoprazole Sodium 40 Mg/10 Ml Vial IVPUSH 05/10/22 15:30 20 mg ONCE ONE Administration <LYLA Cuevas - Last Filed: 05/10/22 22:08> Medical Decision Making Medical Decision Making MDM Narrative: Patient is a 36-year-old male past medical history of migraines, with referral to emergency department from her neurologist so that she may receive infusion medications as reported in HPI. SHe has a longstanding history of migraine headaches, and on her previous emergency department visit 05/01/2022 ED physician at that time attempted contacting her neurologist in hopes to establish a care plan and facilitation of continuity of care within the [facility]. She was able to be discharged that day with outpatient follow-up with her neurologist. At the time of my examination she does not have any focal neurological deficits, I have a low suspicion for ICH/SAH/ SDH, no red flag symptoms, migraines currently consistent with past history and no new findings. I will review the labs obtained from the rapid medical examination. <Sushma Pacheco CNP - Last Filed: 05/10/22 18:12> Differential Diagnosis Differential Diagnoses: The differential diagnosis associated with the presentation includes ( As noted above) <Sushma Pacheco CNP - Last Filed: 05/10/22 18:12> Admission/Observation Consideration of admission/observation: Escalation of care including admission/observation considered <Sushma Pacheco CNP - Last Filed: 05/10/22 18:12> Consult Healthcare Provider Management of the patient was discussed with: Quality Assurance Supervisor Chassis ([facility] Neurology Dy. Tovar) <Sushma Pacheco CNP - Last Filed: 05/10/22 18:12> Lab Data MDM Lab Attestation statement: I reviewed the patient's lab results. <Sushma Pacheco CNP - Last Filed: 05/10/22 18:12> Result Diagrams: 05/10/22 12:13 05/10/22 12:13 <LYLA Belle - Last Filed: 05/10/22 12:08> Labs: Lab Results 05/10/22 05/10/22 05/10/22 Range/Units 12:13 12:13 12:13 WBC 6.0 (4.8-10.8) X10*3/uL RBC 4.46 (4.20-5.50) X10*6/uL Hgb 14.2 (12.0-16.0) g/dl Hct 43.1 (37.0-47.0) % MCV 96.6 (80.0-98.0) fL MCH 31.8 (27.0-33.0) pg MCHC 32.9 (31.0-35.0) g/dl RDW 12.7 (11.0-16.0) % Plt Count 159 L (160-400) X10*3/uL MPV 9.5 (9.4-12.3) fL Immature Gran % (Auto) 0.3 (0.0-0.4) % Neut % (Auto) 68.7 (45-73) % Lymph % (Auto) 24.9 (20-40) % [place] % (Auto) 5.5 (2-11) % Eos % (Auto) 0.3 (0-4) % Baso % (Auto) 0.3 (0-2) % Lymph # (Auto) 1.5 (1.2-4.9) X10*3/uL [place] # (Auto) 0.3 (0.1-1.2) X10*3/uL Eos # (Auto) 0.0 (0.0-0.4) X10*3/uL Baso # (Auto) 0.0 (0.0-0.2) X10*3/uL Abs Immat Gran (auto) 0.02 (0.00-0.03) X10*3/uL Absolute Neuts (auto) 4.1 (2.0-8.3) x10*3/uL Absolute Nucleated RBC 0.000 (0.0-0.012) X10*3/uL Nucleated RBC % (auto) 0.0 (0.0-0.2) /100WBC ESR (0-20) MM/HR Sodium 139 (135-145) mmol/L Potassium 4.3 (3.3-5.1) mmol/L Chloride 110 H (96-108) mmol/L Carbon Dioxide 23 (22-29) mmol/L Anion Gap 10 L (12-20) BUN 10 (9-16) mg/dL Creatinine 0.89 (0.5-1.4) mg/dL Estim Creat Clear Calc 127.9 Estimated GFR > 60 Random Glucose 95 (60-115) mg/dL Calcium 9.0 (8.4-10.2) mg/dL Magnesium 2.0 (1.6-2.6) mg/dL Total Bilirubin 0.4 (0.0-1.0) mg/dL AST 13 (5-31) U/L ALT 15 (0-31) U/L Alkaline Phosphatase 67 (39-117) U/L C-Reactive Protein < 0.10 (< or = 0.50) mg/dL Total Protein 6.6 (6.5-8.0) g/dL Albumin 4.2 (3.5-5.0) g/dL Beta HCG, Quant < 2 mIU/mL Influenza Type A (PCR) NEGATIVE (Negative) Influenza Type B (PCR) NEGATIVE (Negative) RSV RNA Qual (PCR) NEGATIVE (Negative) SARS-CoV-2 RNA (RT-PCR) NEGATIVE (Negative) 05/10/22 Range/Units 12:13 WBC (4.8-10.8) X10*3/uL RBC (4.20-5.50) X10*6/uL Hgb (12.0-16.0) g/dl Hct (37.0-47.0) % MCV (80.0-98.0) fL MCH (27.0-33.0) pg MCHC (31.0-35.0) g/dl RDW (11.0-16.0) % Plt Count (160-400) X10*3/uL MPV (9.4-12.3) fL Immature Gran % (Auto) (0.0-0.4) % Neut % (Auto) (45-73) % Lymph % (Auto) (20-40) % [place] % (Auto) (2-11) % Eos % (Auto) (0-4) % Baso % (Auto) (0-2) % Lymph # (Auto) (1.2-4.9) X10*3/uL [place] # (Auto) (0.1-1.2) X10*3/uL Eos # (Auto) (0.0-0.4) X10*3/uL Baso # (Auto) (0.0-0.2) X10*3/uL Abs Immat Gran (auto) (0.00-0.03) X10*3/uL Absolute Neuts (auto) (2.0-8.3) x10*3/uL Absolute Nucleated RBC (0.0-0.012) X10*3/uL Nucleated RBC % (auto) (0.0-0.2) /100WBC ESR 2 (0-20) MM/HR Sodium (135-145) mmol/L Potassium (3.3-5.1) mmol/L Chloride (96-108) mmol/L Carbon Dioxide (22-29) mmol/L Anion Gap (12-20) BUN (9-16) mg/dL Creatinine (0.5-1.4) mg/dL Estim Creat Clear Calc Estimated GFR Random Glucose (60-115) mg/dL Calcium (8.4-10.2) mg/dL Magnesium (1.6-2.6) mg/dL Total Bilirubin (0.0-1.0) mg/dL AST (5-31) U/L ALT (0-31) U/L Alkaline Phosphatase (39-117) U/L C-Reactive Protein (< or = 0.50) mg/dL Total Protein (6.5-8.0) g/dL Albumin (3.5-5.0) g/dL Beta HCG, Quant mIU/mL Influenza Type A (PCR) (Negative) Influenza Type B (PCR) (Negative) RSV RNA Qual (PCR) (Negative) SARS-CoV-2 RNA (RT-PCR) (Negative) <LYLA Belle - Last Filed: 05/10/22 12:08> Lab Results 05/10/22 05/10/22 05/10/22 Range/Units 12:13 12:13 12:13 WBC 6.0 (4.8-10.8) X10*3/uL RBC 4.46 (4.20-5.50) X10*6/uL Hgb 14.2 (12.0-16.0) g/dl Hct 43.1 (37.0-47.0) % MCV 96.6 (80.0-98.0) fL MCH 31.8 (27.0-33.0) pg MCHC 32.9 (31.0-35.0) g/dl RDW 12.7 (11.0-16.0) % Plt Count 159 L (160-400) X10*3/uL MPV 9.5 (9.4-12.3) fL Immature Gran % (Auto) 0.3 (0.0-0.4) % Neut % (Auto) 68.7 (45-73) % Lymph % (Auto) 24.9 (20-40) % [place] % (Auto) 5.5 (2-11) % Eos % (Auto) 0.3 (0-4) % Baso % (Auto) 0.3 (0-2) % Lymph # (Auto) 1.5 (1.2-4.9) X10*3/uL [place] # (Auto) 0.3 (0.1-1.2) X10*3/uL Eos # (Auto) 0.0 (0.0-0.4) X10*3/uL Baso # (Auto) 0.0 (0.0-0.2) X10*3/uL Abs Immat Gran (auto) 0.02 (0.00-0.03) X10*3/uL Absolute Neuts (auto) 4.1 (2.0-8.3) x10*3/uL Absolute Nucleated RBC 0.000 (0.0-0.012) X10*3/uL Nucleated RBC % (auto) 0.0 (0.0-0.2) /100WBC ESR (0-20) MM/HR Sodium 139 (135-145) mmol/L Potassium 4.3 (3.3-5.1) mmol/L Chloride 110 H (96-108) mmol/L Carbon Dioxide 23 (22-29) mmol/L Anion Gap 10 L (12-20) BUN 10 (9-16) mg/dL Creatinine 0.89 (0.5-1.4) mg/dL Estim Creat Clear Calc 127.9 Estimated GFR > 60 Random Glucose 95 (60-115) mg/dL Calcium 9.0 (8.4-10.2) mg/dL Magnesium 2.0 (1.6-2.6) mg/dL Total Bilirubin 0.4 (0.0-1.0) mg/dL AST 13 (5-31) U/L ALT 15 (0-31) U/L Alkaline Phosphatase 67 (39-117) U/L C-Reactive Protein < 0.10 (< or = 0.50) mg/dL Total Protein 6.6 (6.5-8.0) g/dL Albumin 4.2 (3.5-5.0) g/dL Beta HCG, Quant < 2 mIU/mL Influenza Type A (PCR) NEGATIVE (Negative) Influenza Type B (PCR) NEGATIVE (Negative) RSV RNA Qual (PCR) NEGATIVE (Negative) SARS-CoV-2 RNA (RT-PCR) NEGATIVE (Negative) 05/10/22 Range/Units 12:13 WBC (4.8-10.8) X10*3/uL RBC (4.20-5.50) X10*6/uL Hgb (12.0-16.0) g/dl Hct (37.0-47.0) % MCV (80.0-98.0) fL MCH (27.0-33.0) pg MCHC (31.0-35.0) g/dl RDW (11.0-16.0) % Plt Count (160-400) X10*3/uL MPV (9.4-12.3) fL Immature Gran % (Auto) (0.0-0.4) % Neut % (Auto) (45-73) % Lymph % (Auto) (20-40) % [place] % (Auto) (2-11) % Eos % (Auto) (0-4) % Baso % (Auto) (0-2) % Lymph # (Auto) (1.2-4.9) X10*3/uL [place] # (Auto) (0.1-1.2) X10*3/uL Eos # (Auto) (0.0-0.4) X10*3/uL Baso # (Auto) (0.0-0.2) X10*3/uL Abs Immat Gran (auto) (0.00-0.03) X10*3/uL Absolute Neuts (auto) (2.0-8.3) x10*3/uL Absolute Nucleated RBC (0.0-0.012) X10*3/uL Nucleated RBC % (auto) (0.0-0.2) /100WBC ESR 2 (0-20) MM/HR Sodium (135-145) mmol/L Potassium (3.3-5.1) mmol/L Chloride (96-108) mmol/L Carbon Dioxide (22-29) mmol/L Anion Gap (12-20) BUN (9-16) mg/dL Creatinine (0.5-1.4) mg/dL Estim Creat Clear Calc Estimated GFR Random Glucose (60-115) mg/dL Calcium (8.4-10.2) mg/dL Magnesium (1.6-2.6) mg/dL Total Bilirubin (0.0-1.0) mg/dL AST (5-31) U/L ALT (0-31) U/L Alkaline Phosphatase (39-117) U/L C-Reactive Protein (< or = 0.50) mg/dL Total Protein (6.5-8.0) g/dL Albumin (3.5-5.0) g/dL Beta HCG, Quant mIU/mL Influenza Type A (PCR) (Negative) Influenza Type B (PCR) (Negative) RSV RNA Qual (PCR) (Negative) SARS-CoV-2 RNA (RT-PCR) (Negative) <Sushma Pacheco, LOWELL - Last Filed: 05/10/22 18:12> Lab Results 05/10/22 05/10/22 05/10/22 Range/Units 12:13 12:13 12:13 WBC 6.0 (4.8-10.8) X10*3/uL RBC 4.46 (4.20-5.50) X10*6/uL Hgb 14.2 (12.0-16.0) g/dl Hct 43.1 (37.0-47.0) % MCV 96.6 (80.0-98.0) fL MCH 31.8 (27.0-33.0) pg MCHC 32.9 (31.0-35.0) g/dl RDW 12.7 (11.0-16.0) % Plt Count 159 L (160-400) X10*3/uL MPV 9.5 (9.4-12.3) fL Immature Gran % (Auto) 0.3 (0.0-0.4) % Neut % (Auto) 68.7 (45-73) % Lymph % (Auto) 24.9 (20-40) % [place] % (Auto) 5.5 (2-11) % Eos % (Auto) 0.3 (0-4) % Baso % (Auto) 0.3 (0-2) % Lymph # (Auto) 1.5 (1.2-4.9) X10*3/uL [place] # (Auto) 0.3 (0.1-1.2) X10*3/uL Eos # (Auto) 0.0 (0.0-0.4) X10*3/uL Baso # (Auto) 0.0 (0.0-0.2) X10*3/uL Abs Immat Gran (auto) 0.02 (0.00-0.03) X10*3/uL Absolute Neuts (auto) 4.1 (2.0-8.3) x10*3/uL Absolute Nucleated RBC 0.000 (0.0-0.012) X10*3/uL Nucleated RBC % (auto) 0.0 (0.0-0.2) /100WBC ESR (0-20) MM/HR Sodium 139 (135-145) mmol/L Potassium 4.3 (3.3-5.1) mmol/L Chloride 110 H (96-108) mmol/L Carbon Dioxide 23 (22-29) mmol/L Anion Gap 10 L (12-20) BUN 10 (9-16) mg/dL Creatinine 0.89 (0.5-1.4) mg/dL Estim Creat Clear Calc 127.9 Estimated GFR > 60 Random Glucose 95 (60-115) mg/dL Calcium 9.0 (8.4-10.2) mg/dL Magnesium 2.0 (1.6-2.6) mg/dL Total Bilirubin 0.4 (0.0-1.0) mg/dL AST 13 (5-31) U/L ALT 15 (0-31) U/L Alkaline Phosphatase 67 (39-117) U/L C-Reactive Protein < 0.10 (< or = 0.50) mg/dL Total Protein 6.6 (6.5-8.0) g/dL Albumin 4.2 (3.5-5.0) g/dL Beta HCG, Quant < 2 mIU/mL Influenza Type A (PCR) NEGATIVE (Negative) Influenza Type B (PCR) NEGATIVE (Negative) RSV RNA Qual (PCR) NEGATIVE (Negative) SARS-CoV-2 RNA (RT-PCR) NEGATIVE (Negative) 05/10/22 Range/Units 12:13 WBC (4.8-10.8) X10*3/uL RBC (4.20-5.50) X10*6/uL Hgb (12.0-16.0) g/dl Hct (37.0-47.0) % MCV (80.0-98.0) fL MCH (27.0-33.0) pg MCHC (31.0-35.0) g/dl RDW (11.0-16.0) % Plt Count (160-400) X10*3/uL MPV (9.4-12.3) fL Immature Gran % (Auto) (0.0-0.4) % Neut % (Auto) (45-73) % Lymph % (Auto) (20-40) % [place] % (Auto) (2-11) % Eos % (Auto) (0-4) % Baso % (Auto) (0-2) % Lymph # (Auto) (1.2-4.9) X10*3/uL [place] # (Auto) (0.1-1.2) X10*3/uL Eos # (Auto) (0.0-0.4) X10*3/uL Baso # (Auto) (0.0-0.2) X10*3/uL Abs Immat Gran (auto) (0.00-0.03) X10*3/uL Absolute Neuts (auto) (2.0-8.3) x10*3/uL Absolute Nucleated RBC (0.0-0.012) X10*3/uL Nucleated RBC % (auto) (0.0-0.2) /100WBC ESR 2 (0-20) MM/HR Sodium (135-145) mmol/L Potassium (3.3-5.1) mmol/L Chloride (96-108) mmol/L Carbon Dioxide (22-29) mmol/L Anion Gap (12-20) BUN (9-16) mg/dL Creatinine (0.5-1.4) mg/dL Estim Creat Clear Calc Estimated GFR Random Glucose (60-115) mg/dL Calcium (8.4-10.2) mg/dL Magnesium (1.6-2.6) mg/dL Total Bilirubin (0.0-1.0) mg/dL AST (5-31) U/L ALT (0-31) U/L Alkaline Phosphatase (39-117) U/L C-Reactive Protein (< or = 0.50) mg/dL Total Protein (6.5-8.0) g/dL Albumin (3.5-5.0) g/dL Beta HCG, Quant mIU/mL Influenza Type A (PCR) (Negative) Influenza Type B (PCR) (Negative) RSV RNA Qual (PCR) (Negative) SARS-CoV-2 RNA (RT-PCR) (Negative) <LYLA Cuevas - Last Filed: 05/10/22 22:08> External Record Review External record reviewed: Outpatient record <Sushma Pacheco CNP - Last Filed: 05/10/22 18:12> Critical Care Time Critical Care Time Critical Care Time: No <LYLA Cuevas - Last Filed: 05/10/22 22:08> Discharge Plan Discharge Clinical Impression: Migraine <LYLA Belle - Last Filed: 05/10/22 12:08> Patient Disposition: Home, Self-Care <LYLA Belle - Last Filed: 05/10/22 12:08> Instructions: Migraine Headache (ED) <LYLA Belle - Last Filed: 05/10/22 12:08> Additional Instructions: you received medications while in the emergency department today according to the care plan that has been arranged by your neurologist follow-up outpatient with your neurologist for further management and optimization of your outpatient regimen Take your medications as prescribed. If you were prescribed antibiotics today, it is important that you take your medication to their entirety, do not skip any doses, do not finish them early. Follow-up with your primary care provider this week. Return to the emergency department with new or worsening symptoms. Such as fevers, chills, chest pain, shortness of breath, nausea, vomiting, dizziness, headache, vision changes, lethargy In case of emergency call 911 <LYLA Belle - Last Filed: 05/10/22 12:08> Prescriptions: No Action lactulose 10 gram/15 mL solution 20 g PO DAILY 3 Days Qty: 90 0RF ketorolac 10 mg tablet 10 mg PO TID PRN (Reason: pain) 5 Days Qty: 7 0RF Rx Instructions: Do not take NSAIDs with this medication, only Tylenol if needed <LYLA Belle - Last Filed: 05/10/22 12:08> Referrals: [facility] [place] [facility] [Provider Group] - 2 days Bret Gerard MD [Primary Care Provider] - <LYLA Belle - Last Filed: 05/10/22 12:08>
[2022-05-10 12:19] LABS: MANUAL DIFF FLAG NO
[2022-05-10 12:21] LABS: Basophils Percent Auto 0.3 % (0-2); Eosinophils Percent Auto 0.3 % (0-4); Hematocrit 43.1 % (37.0-47.0); Hemoglobin 14.2 g/dl (12.0-16.0); Imm Gran Abs Auto 0.02 X10*3/uL (0.00-0.03); Imm Gran Pct Auto 0.3 % (0.0-0.4); Lymphocytes Absolute Auto 1.5 X10*3/uL (1.2-4.9); Lymphocytes Percent Auto 24.9 % (20-40); Mean Corpuscular HGB Conc 32.9 g/dl (31.0-35.0); Mean Corpuscular Hemoglobin 31.8 pg (27.0-33.0); Mean Corpuscular Volume 96.6 fL (80.0-98.0); Mean Platelet Volume 9.5 fL (9.4-12.3); Monocytes Absolute Auto 0.3 X10*3/uL (0.1-1.2); Monocytes Percent Auto 5.5 % (2-11); Neutrophils Absolute Auto 4.1 x10*3/uL (2.0-8.3); Neutrophils Percent Auto 68.7 % (45-73); Platelet Count 159 X10*3/uL (160-400); Red Blood Count 4.46 X10*6/uL (4.20-5.50); Red Cell Distribution Width 12.7 % (11.0-16.0)
[2022-05-10 12:41] LABS: Alanine Aminotransferase 15 U/L (0-31); Albumin Level 4.2 g/dL (3.5-5.0); Alkaline Phosphatase 67 U/L (39-117); Anion Gap 10 (12-20); Aspartate Amino Transferase 13 U/L (5-31); Bilirubin Total 0.4 mg/dL (0.0-1.0); Blood Urea Nitrogen 10 mg/dL (9-16); C Reactive Protein < 0.10 mg/dL (< or = 0.50); Carbon Dioxide 23 mmol/L (22-29); Chloride 110 mmol/L (96-108); Creatinine Clr Calc Pharmacy 127.9; Estimated Glomerular Filt Rate > 60; Glucose Random 95 mg/dL (60-115); Potassium 4.3 mmol/L (3.3-5.1); Sodium 139 mmol/L (135-145); Total Protein 6.6 g/dL (6.5-8.0)
[2022-05-10 13:00] LABS: HCG Quantitative < 2 mIU/mL
[2022-05-10 13:04] LABS: Influenza A PCR NEGATIVE (Negative); Influenza B PCR NEGATIVE (Negative); Resp Syncy Virus RNA Qual PCR NEGATIVE (Negative); SARS COV2 PCR INHOUSE NEGATIVE (Negative)
[2022-05-10 13:14] LABS: Erythrocyte Sedimentation Rate 2 MM/HR (0-20)
[2022-05-10 15:24] VITALS: BP 120/69; PULSE 60; RESP 19; TEMP 37.2; O2SAT 97
[2022-05-10] MEDS: 0.9 % Sodium Chloride 1,000 ML 999 ML IV (16:58)
[2022-05-10] MEDS: Pantoprazole Sodium 40 MG/10 ML VIAL 20 MG IVPUSH (17:04)
[2022-05-10] MEDS: ondansetron HCL 4 MG/2 ML VIAL IVPUSH ×2 (17:06→20:39)
[2022-05-10] MEDS: diphenhydrAMINE HCL 50 MG/ML VIAL IVPUSH (17:07)
[2022-05-10] MEDS: Valproic Acid (as Sodium Salt) 500 MG in Dextrose 5 % 50 ML 55 MG IV (17:15)
[2022-05-10 18:44] VITALS: BP 112/61; PULSE 55; RESP 15; TEMP 36.8; O2SAT 100
--- NOTE | 2022-05-10 19:32 | PC.NURSE ---
This show card writer assumed care of this PT at 1900. PT reports 09/07 migraine headache. Previous RN reports IV infiltration, PT has no IV access at this time. New IV established and meds given as documented. PT reports effectiveness to meds given.
[2022-05-10] MEDS: LORazepam 2 MG/ML VIAL 1 MG IVPUSH (19:41)
[2022-05-10 20:02] VITALS: BP 113/52; PULSE 55; RESP 14; TEMP 36.8; O2SAT 99
[2022-05-10] MEDS: diphenhydrAMINE HCL 50 MG/ML VIAL 25 MG IVPUSH (20:38)
[2022-05-10] MEDS: Magnesium Sulfate/H2O 2 GM/50 ML PIGGYBACK IV (20:42)
== END 2022-05-10 22:24 | disposition home or self-care (01) ==
PROVIDERS: Physician Assistant Medical; Emergency Provider Student in an Organized Health Care Education/Training Program; PCP Internal Medicine Sports Medicine
DX: G43.909 Migraine, unspecified, not intractable, without status migrainosus (principal); Z20.822 Contact with and (suspected) exposure to COVID-19; Z20.828 Contact with and (suspected) exposure to other viral communicable diseases; Z79.899 Other long term (current) drug therapy
CPT/HCPCS: 0241U; 36415; 80053; 83735; 84702; 85025; 85652; 86140; 96361; 96374; 96375; 96376; 99284; J1200; J2060; J2405; J3475

== ENCOUNTER 2022-05-24 08:52 | Emergency (ER) | payer MEDICARE, MEDICAID, SELFPAY ==
[2022-05-24 08:58] VITALS: BP 109/44; PULSE 64; RESP 16; TEMP 36.7; O2SAT 98; BMI 34.9
--- NOTE | 2022-05-24 10:20 | ED.HA ---
HPI - Headache General Chief Complaint: Headache Stated Complaint: severe headache Time Seen by Provider: 05/24/22 10:09 Source: patient Mode of arrival: ambulatory Limitations: no limitations History of Present Illness HPI Narrative: 36-year-old female with chronic migraines has been to the hospital 3 times this month for the same thing she has a note from her neurologist Dr. Tovar who wants her to get 2 mg of Ativan 1500 mL of saline 25 mg of diphenhydramine 2 doses 30 minutes apart IV Tylenol and IV Zofran 2 doses 30 minutes apart as well as magnesium 2 g and Depakote IV. They also recommend giving her Pantoprazole 20 mg IV for associated GI upset. the logic of the pantoprazole is suspect as it takes days for the PPI to work I will avoid this I will give her some medications that she has stated allergies to every other medication that would typically give her headache. Though all the allergies are listed as headache. Patient had headache for 5 days did get infusion two days ago was feeling better then felt worse last night vomiting x 5 times. MD elicited complaint: headache and migraine Related Data Previous Rx's Medication Instructions Recorded lactulose 10 gram/15 mL oral 20 g (30 mL) PO DAILY 3 days #90 mL 07/04/21 solution ketorolac 10 mg tablet 10 mg PO TID PRN pain 5 days #7 04/12/22 tabs Allergies Allergy/AdvReac Type Severity Reaction Status Date / Time clarithromycin [From Biaxin] Allergy Unknown UNKNOWN Verified 05/24/22 08:57 acetaminophen [From Percocet] Allergy Headache Verified 05/24/22 08:57 haloperidol [From Haldol] Allergy Unknown Verified 05/24/22 08:57 ketamine Allergy Unknown Verified 05/24/22 08:57 metoclopramide [From Reglan] Allergy Irritable Verified 05/24/22 08:57 oxycodone [From Percocet] Allergy Headache Verified 05/24/22 08:57 sumatriptan [From Imitrex] Allergy Nausea Verified 05/24/22 08:57 morphine AdvReac Stomach Verified 05/24/22 08:57 Upset From Compazine Allergy Unknown UNKNOWN Uncoded 12/16/19 17:50 Review of Systems Review of Systems: Review of systems: General: Patient denies any fever chills recent illness or falls Musculoskeletal: Denies back pain or body aches or other injuries HEENT: headache, Deniesrunny nose, ear pain Respiratory: denies shortness of breath, cough Cardiovascular: no chest pain or palpitations : denies dysuria, frequency Abdomen: no nausea vomiting denies abdominal pain Extremities: no swelling, no pain Skin: no diaphoresis Yes all other systems are reviewed and are negative PMFSH Past Medical History Medical History Anxiety Constipation Migraine PTSD (post-traumatic stress disorder) Social History Social History Alcohol intake: never Smoked in Last 30 Days: No Use of substances other than those prescribed or required for medical reasons: No Advance Directives: No Advance Directives Information Provided: Yes Patient : No Physical Exam Vital Signs: Vital Signs: Last Vital Signs Temp 98.2 F 05/24/22 12:06 Pulse 56 05/24/22 12:06 Resp 12 05/24/22 12:06 BP 110/48 L 05/24/22 12:06 Pulse Ox 98 05/24/22 12:06 O2 Del Method 05/24/22 12:06 BMI result Body Mass Index 34.9 Neurological exam: CN II- XII tested. Patient is alert and oriented to person place and time. Patient has no dysphagia or dysarthia, denies good vision in all four vision balbuena no nystagmus on exam, good strength to upper and lower extremities with normal reflexes to brachioradialis, wrist, patella and achilles. Negative romberg, good finger to nose and heel to blanco. General: Well-appearing well-nourished in no signs of distress HEENT: Normocephalic atraumatic Neck: No signs of JVD, no masses no tenderness or lymphadenopathy Cardiovascular: Regular rate and rhythm Respiratory: Clear to auscultation bilaterally Abdomen: Soft nontender no masses Extremities: Normal pedal pulses no signs of edema Skin: Dry warm no rashes Back: No tenderness full ROM Medications Administered Discontinued Medications Generic Name Dose Route Start Last Admin Trade Name Freq PRN Reason Stop Dose Admin Diphenhydramine HCl 25 mg 05/24/22 10:17 05/24/22 12:05 Diphenhydramine Hcl 50 Mg/Ml Vial IVPUSH 05/24/22 10:18 25 mg ONCE ONE Administration Famotidine 20 mg 05/24/22 11:30 05/24/22 12:05 Famotidine/Pf 20 Mg/2 Ml Vial IVPUSH 05/24/22 11:31 20 mg ONCE ONE Administration Sodium Chloride 1,000 mls @ 999 mls/hr 05/24/22 10:30 05/24/22 11:51 Ns IV 05/24/22 11:30 Infused .Q1H1M WANG Infusion Acetaminophen 1,000 mg in 100 mls @ 400 mls/hr 05/24/22 10:17 05/24/22 12:42 Ofirmev IV 05/24/22 10:31 Infused ONCE ONE Infusion Valproic Acid 250 mg/ Dextrose 52.5 mls @ 52.5 mls/hr 05/24/22 10:17 05/24/22 11:45 IV 05/24/22 11:16 52.5 mls/hr ONCE ONE Administration Ketorolac Tromethamine 15 mg 05/24/22 10:17 05/24/22 11:14 Ketorolac Tromethamine 15 Mg/Ml Vial IVPUSH 05/24/22 10:18 Not Given ONCE ONE Lorazepam 1 mg 05/24/22 10:17 05/24/22 11:09 Lorazepam 2 Mg/Ml Vial IVPUSH 05/24/22 10:18 1 mg ONCE ONE Administration Ondansetron HCl 4 mg 05/24/22 11:16 05/24/22 11:39 Ondansetron Hcl 4 Mg/2 Ml Vial IVPUSH 05/24/22 11:17 4 mg ONCE ONE Administration Medical Decision Making Medical Decision Making [facility] Narrative: patient has desire to get protocol from her neurologist Dr. Tovar 2 mg of Ativan IV 1500 mL of saline 25 mg diphenhydramine 2 doses 30 minutes apart IV Tylenol and 4 mg of Zofran 2 doses 30 minutes apart and then he needed and give IV magnesium to rooms and IV Depakote as well as pantoprazole. Patient can to pick at these medications through the infusion center but comes to the ER she wants Depakote. I was called back to the room as the patient requested to take zofran and protonix IV. I had explained that protonix won't work emergently I was happy to give her maalox or pepcid as they work immediately and she began to argue then started asking for more IV benadryl. I attempted again to explain why it is not indicated as it is very high inducing but she continued to argue. I will give her IV zofran and pepcid at this time. Patient requested more IV benadryl and IV ativan stating it works for her. I again explained how these medications induce euphoria and are not indicated. I see she has a protocol and can get those medications in a outpatient setting but I don't see a reason to write for them in this case. She kept arguing that they are not euphoria inducting and she doesn't get narcotics. I explained she can have more zofran but I had given her IV ativan IV benadryl once and saw no clinical reason to give more other than her request. She then demanded to see another provider or someone above me. She was visited by charge nurse and continued to demand 1 mg of IV ativan another 25 mg of benadryl. I did give her the zofran. I will send home. She did state multiple times that she will be back when her headache returns and fears that the decreased dose of ativan and benadryl will lead to it coming back earlier. I still see she is safe to go and feel repeated IV doses of IV ativan and benadryl have no clinical utility. Differential Diagnosis Differential Diagnoses: The differential diagnosis associated with the presentation includes Discharge Plan Discharge Clinical Impression: Migraine Patient Disposition: Home, Self-Care Instructions: Migraine Headache (ED) Additional Instructions: Please follow up with your Neurologist. Prescriptions: No Action lactulose 10 gram/15 mL solution 20 g PO DAILY 3 Days Qty: 90 0RF ketorolac 10 mg tablet 10 mg PO TID PRN (Reason: pain) 5 Days Qty: 7 0RF Rx Instructions: Do not take NSAIDs with this medication, only Tylenol if needed
[2022-05-24 11:01] VITALS: BP 99/50; PULSE 55; RESP 14; TEMP 37.3; O2SAT 96
[2022-05-24] MEDS: 0.9 % Sodium Chloride 1,000 ML 999 ML IV (11:09)
[2022-05-24] MEDS: LORazepam 2 MG/ML VIAL 1 MG IVPUSH (11:09)
[2022-05-24] MEDS: Acetaminophen 1,000 MG/100 ML PIGGYBACK 400 MG IV (11:11)
[2022-05-24] MEDS: ondansetron HCL 4 MG/2 ML VIAL IVPUSH (11:39)
[2022-05-24] MEDS: Valproic Acid (as Sodium Salt) 250 MG in Dextrose 5 % 50 ML 52.5 MG IV (11:45)
[2022-05-24] MEDS: Famotidine/PF 20 MG/2 ML VIAL IVPUSH (12:05)
[2022-05-24] MEDS: diphenhydrAMINE HCL 50 MG/ML VIAL 25 MG IVPUSH (12:05)
[2022-05-24 12:06] VITALS: BP 110/48; PULSE 56; RESP 12; TEMP 36.8; O2SAT 98
--- NOTE | 2022-05-24 12:07 | PC.NURSE ---
pt here for headache, ordered medications administered per emar. pt requesting iv push protonix and zofran . provider back at bedside discussing the indication for these medications in the emergent setting. pt at times very argumentative with provider and other staff. pct approached pt room to remove towel that had been placed on curtain against facility policy, pt threatening if you remove that from the curtain im going to file a formal complaint against you . pt further medicated as ordered. pt is no obvious distress throughout interaction. will reevaluate pt to ensure medications working.
--- NOTE | 2022-05-24 12:26 | PC.NURSE ---
provider at bedside, pt is essentially demanding iv doses of zofran, benadryl and ativan. pt becoming very argumentative with provider, asking to speak with another provider . provider affirms he is only attending physician in ed att. pt appears in no obvious distress.
--- NOTE | 2022-05-24 12:45 | PC.NURSE ---
this rn is at bedside with pt. pt is stating that she wants benadryl 25mg ivp x 2 at 30minute interval, zofran 4mg ivp x 2 at 30minute interval (simultaneously with the bendadryl) and ativan 2mg ivp instead of the ativan 1mg ivp that she was given. pt states that she is not happy wtih the meds that she was given per md. dr. sauceda is at bedside and is responding to pt's demand for more meds in a gentle, compassionate and appropriate bedside manner. md has also explained risks of meds at length to pt with this rn present.
== END 2022-05-24 13:40 | disposition home or self-care (01) ==
PROVIDERS: Emergency Provider Student in an Organized Health Care Education/Training Program; PCP Internal Medicine Sports Medicine
DX: G43.909 Migraine, unspecified, not intractable, without status migrainosus (principal); Z79.899 Other long term (current) drug therapy
CPT/HCPCS: 96361; 96365; 96375; 99284; J0131; J1200; J2060; J2405